=== PATIENT | male | born 1970 | race Caucasian/White ===

== ENCOUNTER 2017-04-30 15:19 | Emergency (ER) | payer OTHER ==
[~2017-04-30] VITALS: Ht 165.1 cm; Wt 65.0 kg
[~2017-04-30 15:19] MED LIST: HYDR-906 PO; IBUP-1542 PO
[2017-04-30] MEDS ORDERED: LORAZEPAM 2 MG INJ IV STA (15:21)
[2017-04-30] MEDS ORDERED: SOD CHLORIDE 0.9% 1,000 ML IV STA (15:21)
[2017-04-30 15:49] VITALS: Ht 165.1 cm; Wt 65.0 kg
[2017-04-30 15:49] LABS: BASOPHIL # 0.1 10^3/ul (0.0-0.1); BASOPHILS % 1.4 % (0.0-2.0); EOSINOPHILS % 0.2 % (0.0-7.0); HEMATOCRIT 38.4 % (42.0-52.0); HEMOGLOBIN 13.6 g/dl (14.0-18.0); LYMPHOCYTES # 1.2 10^3/ul (0.8-2.9); LYMPHOCYTES % 18.1 % (15.0-51.0); MEAN CORPUSCULAR HEMOGLOBIN 33.9 pg (29.0-33.0); MEAN CORPUSCULAR HGB CONC 35.4 g/dl (32.0-37.0); MEAN CORPUSCULAR VOLUME 95.8 fl (82.0-101.0); MEAN PLATELET VOLUME 10.4 fl (7.4-10.4); MONOCYTES % 15.8 % (0.0-11.0); NEUTROPHIL # 4.1 10^3/ul (1.6-7.5); NEUTROPHILS % 63.3 % (39.0-77.0); PLATELET COUNT 167 10^3/UL (140-415); RED BLOOD COUNT 4.01 10^6/ul (4.70-6.10); RED CELL DISTRIBUTION WIDTH 15.2 % (11.5-14.5); WHITE BLOOD COUNT 6.5 10^3/ul (4.8-10.8)
[2017-04-30 16:08] LABS: CALCIUM 10.1 mg/dl (8.4-10.2); CREATININE 0.68 mg/dl (0.61-1.24); POTASSIUM 3.5 mmol/L (3.5-5.1)
--- NOTE | 2017-04-30 17:38 | RADRPT ---
PROCEDURE: CT brain without contrast CLINICAL INDICATION: Seizure TECHNIQUE: CT of the brain without contrast performed on a multidetector CT scanner, with multiplan ar reformats. One or more of the following dose reduction techniques were used: Automated exposure control, adjustment in mA and / or kV according to patient size, use of iterative reconstructive lidya hnique. CTDIvol = 44 mGy; DLP = 720 mGy-cm. COMPARISON: CT brain 06/18/2016 FINDINGS: No acute intracranial hemorrhage is identified. No extra-axial fluid collection is seen. There is no mass effect. No midline shift is identified. The ventricles and sulci are mild to moderately enlarged compatible with volume loss. There are minimal areas of hypodensity in the periventricular - deep white matter which are nonspeci fic but suggestive of chronic small vessel ischemic changes. Sumner-white differentiation is preserve d. Atherosclerotic calcifications of the intracranial internal carotid arteries are noted. Calvarium and skull base appear intact. Mastoid air cells and imaged paranasal sinuses grossly tunde r. IMPRESSION: 1. No evidence of acute intracranial pathology. 2. Mild to moderate volume loss, with minimal chronic small vessel ischemic changes. RPTAT: EE .Erlin Irvin MD, Date Time Electronically viewed and signed by .Erlin Irvin MD, MD on 04/30/2017 17:38 .O/
[2017-04-30 18:05] VITALS: BP 135/94; PULSE 93; RESP 23
--- NOTE | 2017-04-30 18:05 | ERD ---
ER Documentation Chief Complaint Date/Time DATE: 04/30/17 TIME: 18:02 Chief Complaint seizure, possible alcohol withdrawal sent in from half-way witnessed by nurses HPI Patient is a 47-year-old male with no medical problems who presents with a possible seizure. He is currently in custody and was in half-way and there was a seizure that was noticed by somebody in the half-way that was working there. The patient has a history of alcohol use and his last alcohol was yesterday as he was incarcerated yesterday at 10:30 PM. His blood sugar was 140 by paramedics. Please note the history and physical exam is limited secondary to the patient' s recall of events. ROS All systems reviewed and are negative except as per history of present illness. Medications Home Meds Active Scripts Hydrocodone/Acetaminophen ([place] 5-325 Tablet) 1 Each Tablet, 1 TAB PO Q6H Y for PAIN, #20 TAB Prov:TRUNG HARPER NP 08/04/16 Ibuprofen* (Motrin*) 600 Mg Tab, 600 MG PO Q6H Y for PAIN AND OR ELEVATED TEMP, #30 TAB Prov:TRUNG HARPER SYSTEM PLANNING ENGINEER 08/04/16 Reported Medications [none] Unknown Strength No Conflict Check 08/04/16 Allergies Allergies: Coded Allergies: No Known Drug Allergies (Verified Allergy, Unknown, 08/03/16) PMhx/Soc History of Surgery: No Anesthesia Reaction: No Hx Neurological Disorder: No Hx Respiratory Disorders: Yes (asthma) Hx Cardiac Disorders: No Hx Psychiatric Problems: No Hx Miscellaneous Medical Probl: No Hx Alcohol Use: Yes (BEER) Hx Substance Use: No Hx Tobacco Use: No Smoking Status: Never smoker FmHx Family History: No diabetes Physical Exam Vitals Vital Signs Date Time Temp Pulse Resp B/P Pulse Ox O2 Delivery O2 Flow Rate FiO2 04/30/17 15:49 98.8 94 22 149/95 96 Physical Exam Const: Confused Head: Atraumatic Eyes: Normal Conjunctiva ENT: Normal External Ears, Nose and Mouth. Neck: Full range of motion..~ No meningismus. Resp: Clear to auscultation bilaterally Cardio: Regular rate and rhythm, no murmurs Abd: Soft, non tender, non distended. Normal bowel sounds Skin: No petechiae or rashes Back: No midline or flank tenderness Ext: No cyanosis, or edema Neur: Awake but confused regarding events Psych: Normal Mood and Affect Result Diagram: 04/30/17 1534 04/30/17 1534 Results 24 hrs Laboratory Tests Test 04/30/17 15:28 04/30/17 15:34 Bedside Glucose 144mg/dL White Blood Count 6.510^3/ul Red Blood Count 4.0110^6/ul Hemoglobin 13.6g/dl Hematocrit 38.4% Mean Corpuscular Volume 95.8fl Mean Corpuscular Hemoglobin 33.9pg Mean Corpuscular Hemoglobin Concent 35.4g/dl Red Cell Distribution Width 15.2% Platelet Count 73468^3/UL Mean Platelet Volume 10.4fl Neutrophils % 63.3% Lymphocytes % 18.1% Monocytes % 15.8% Eosinophils % 0.2% Basophils % 1.4% Nucleated Red Blood Cells % 0.0/100WBC Neutrophils # 4.110^3/ul Lymphocytes # 1.210^3/ul Monocytes # 1.010^3/ul Eosinophils # 0.010^3/ul Basophils # 0.110^3/ul Nucleated Red Blood Cells # 0.010^3/ul Sodium Level 140mmol/L Potassium Level 3.5mmol/L Chloride Level 92mmol/L Carbon Dioxide Level 21mmol/L Anion Gap 31 Blood Urea Nitrogen 6mg/dl Creatinine 0.68mg/dl Glucose Level 152mg/dl Calcium Level 10.1mg/dl Current Medications Medications (Trade) Dose Ordered Sig/Amadeo Route PRN Reason Start Time Stop Time Status Last Admin Dose Admin Sodium Chloride (NS) 1,000 ml @ 1,000 mls/hr Q1H STAT IV 04/30/17 15:21 04/30/17 16:20 DC 04/30/17 15:33 Lorazepam (Ativan) 1 mg ONCE STAT IV 04/30/17 15:21 04/30/17 15:22 DC 04/30/17 15:32 Procedures/MDM CT brain shows no acute abnormality per radiology. Patient is a 47-year-old male who presents with a possible seizure. Laboratory studies are consistent with seizure. CT brain shows no intracranial mass or hemorrhage. The patient is now awake alert and oriented on reevaluation. He was given Ativan to prevent further seizure. This may have been alcohol withdrawal seizure as he does have consistent alcohol use. The patient will be discharged into police custody. He will need to follow-up with a primary doctor as he does not currently have a primary doctor. The patient can return for any worsening symptoms. I would not start him on any new medications. A DMV form was filled out as this is the patient's first seizure and he was told not to drive until cleared by a physician although the patient says that he does not drive. Departure Diagnosis: Primary Impression: Seizure Additional Impression: Anemia Anemia type: unspecified type Qualified Code: D64.9 - Anemia, unspecified type Condition: Fair Patient Instructions: Seizure, New Onset, Unk Cause [Adult] Referrals: [facility] (PCP) Additional Instructions: Call your primary care doctor TOMORROW for an appointment during the next 1-2 days.See the doctor sooner or return here if your condition worsens before your appointment time. NADER FISCHER MD Apr 30, 2017 18:05
== END 2017-04-30 19:07 ==
LOC: E/R 15:19
DX: R56.9 Unspecified convulsions (principal); J45.909 Unspecified asthma, uncomplicated; D64.9 Anemia, unspecified; R40.2142 Coma scale, eyes open, spontaneous, at arrival to emergency department; R40.2252 Coma scale, best verbal response, oriented, at arrival to emergency department; R40.2362 Coma scale, best motor response, obeys commands, at arrival to emergency department
CPT/HCPCS: 36415; 70450; 80048; 82962; 85025; 96374; 99285; J2060; J7030

== ENCOUNTER 2017-08-06 00:58 | Inpatient (IN) | payer OTHER ==
[~2017-08-06] VITALS: Ht 162.6 cm; Wt 67.3 kg
[2017-08-06] MEDS ORDERED: SOD CHLORIDE 0.9% 1,000 ML IV STA (01:08)
[2017-08-06 01:50] VITALS: Ht 162.6 cm; Wt 67.3 kg
--- NOTE | 2017-08-06 01:58 | RADRPT ---
PROCEDURE: CT Brain without contrast. CLINICAL INDICATION: Altered mental status. TECHNIQUE: A CT of the brain was performed utilizing axial imaging from the skull base through the vertex without IV contrast. Multiplanar reformatted images were made. Images were reviewed on a [employer] workstation. The CTDIvol is 89.40 6 mGy and the DLP is 1080.34 mGycm. One or more of the following dose reduction techniques were utilized: 1.) Automated exposure control 2.) Adjustment of the mA +/- kV according to patient's size 3.) Use of iterative reconstruction technique. COMPARISON: 04/30/2017. FINDINGS: Chronic changes of atrophy and small vessel disease white matter again seen, greater than expected f or patient age. There is no intracranial hemorrhage, mass effect, or midline shift. No extra-axial fluid collection is seen. The ventricles and sulci are otherwise normal in size and configuration. The density of th e brain is otherwise normal, and the lindquist white matter differentiation appears well-preserved. The visualized paranasal sinuses and osseous structures are grossly unremarkable. IMPRESSION: 1. Chronic changes of atrophy and small vessel disease white matter again seen, greater than expecte d for patient age. 2. Otherwise, no acute process in the head. RPTAT: [facility]U Physician Adalgisa Date Time Electronically viewed and signed by Physician Adalgisa on 08/06/2017 01:58 RS/
[2017-08-06] MEDS ORDERED: ONDANSETRON 4 MG INJ ONE (02:07)
--- NOTE | 2017-08-06 02:25 | RADRPT ---
PROCEDURE: XR Chest. CLINICAL INDICATION: Altered mental status. Seizure. TECHNIQUE: Single frontal view of the chest. COMPARISON: None. FINDINGS: Cardiomegaly. Hypoinflated lungs accentuate pulmonary vascular markings. The lungs are clear. No sig ns of pleural fluid or pneumothorax are seen. The osseous structures and soft tissues are unremarkab le. IMPRESSION: No evidence for active cardiopulmonary disease. RPTAT: [facility] Physician Adalgisa Date Time Electronically viewed and signed by Vandana Dickinson Physician on 08/06/2017 02:24 RS/
[2017-08-06] MEDS ORDERED: ONDANSETRON 4 MG INJ IV STA (02:55)
[2017-08-06] MEDS ORDERED: LEVETIRACETAM 1000 MG (PMX) 100 ML IVPB ONE (03:00)
[2017-08-06] MEDS ORDERED: CHLORDIAZEPOXIDE 25 MG CAP PO ONE (04:00)
--- NOTE | 2017-08-06 06:28 | ERD ---
ER Documentation Chief Complaint Chief Complaint POSSIBLE SEIZURE, MOUTH TRAUMA HPI This 47-year-old male brought in by paramedics and police from halfway for having a possible seizure in halfway. He has a history of seizure disorder. He is currently altered. He is not on any medications. On arrival he is able to answer only basic questions and states that he has no pain. Is still confused. History was taken approximately an hour later when the patient was alert and oriented. Neurological exam was completely normal. States that he was drinking heavily before he went to halfway a couple days ago and has not had a drink since. ROS Unobtainable. Medications Home Meds Active Scripts Hydrocodone/Acetaminophen ([place] 5-325 Tablet) 1 Each Tablet, 1 TAB PO Q6H Y for PAIN, #20 TAB Prov:TRUNG HARPER NP 08/04/16 Ibuprofen* (Motrin*) 600 Mg Tab, 600 MG PO Q6H Y for PAIN AND OR ELEVATED TEMP, #30 TAB Prov:TRUNG HARPER NP 08/04/16 Reported Medications [none] Unknown Strength No Conflict Check 08/04/16 Allergies Allergies: Coded Allergies: No Known Drug Allergies (Verified Allergy, Unknown, 08/03/16) PMhx/Soc History of Surgery: No Anesthesia Reaction: No Hx Neurological Disorder: Yes (SEIZURES) Hx Respiratory Disorders: Yes (asthma) Hx Cardiac Disorders: No Hx Psychiatric Problems: No Hx Miscellaneous Medical Probl: Yes (SEIZURES) Hx Alcohol Use: Yes (BEER) Hx Substance Use: No Hx Tobacco Use: No Smoking Status: Unknown if ever smoked Physical Exam Vitals Vital Signs Date Time Temp Pulse Resp B/P Pulse Ox O2 Delivery O2 Flow Rate FiO2 08/06/17 03:55 97.9 79 16 139/87 99 Nasal Cannula 2.0 08/06/17 01:50 98.3 94 14 148/92 96 08/06/17 01:49 Nasal Cannula 2 Physical Exam Const: [] Mild distress Head: Atraumatic Eyes: Normal Conjunctiva ENT: Normal External Ears, Nose and Mouth., Small area of bleeding on tongue. Neck: Full range of motion..~No midline tenderness. Resp: Clear to auscultation bilaterally Cardio: Regular rate and rhythm, no murmurs Abd: Soft, non tender, non distended. Normal bowel sounds Skin: No petechiae or rashes Back: No midline or flank tenderness Ext: No cyanosis, or edema distal pulses intact all 4 extremities, no signs of trauma. Neur: Awake and alert, confused, moves all 4 extremities Result Diagram: 08/06/1721408/06/17214 Results 24 hrs Laboratory Tests Test 08/06/17 01:02 08/06/17 02:15 08/06/17 03:00 Bedside Glucose 110mg/dL White Blood Count 4.910^3/ul Red Blood Count 3.8410^6/ul Hemoglobin 12.8g/dl Hematocrit 36.0% Mean Corpuscular Volume 93.8fl Mean Corpuscular Hemoglobin 33.3pg Mean Corpuscular Hemoglobin Concent 35.6g/dl Red Cell Distribution Width 17.2% Platelet Count 82265^3/UL Mean Platelet Volume 10.5fl Neutrophils % 69.0% Lymphocytes % 10.4% Monocytes % 18.8% Eosinophils % 0.2% Basophils % 1.4% Nucleated Red Blood Cells % 0.0/100WBC Neutrophils # 3.410^3/ul Lymphocytes # 0.510^3/ul Monocytes # 0.910^3/ul Eosinophils # 0.010^3/ul Basophils # 0.110^3/ul Nucleated Red Blood Cells # 0.010^3/ul Sodium Level 141mmol/L Potassium Level 3.9mmol/L Chloride Level 97mmol/L Carbon Dioxide Level 24mmol/L Anion Gap 24 Blood Urea Nitrogen 9mg/dl Creatinine 0.71mg/dl Glucose Level 114mg/dl Lactic Acid Level 4.0mmol/L Calcium Level 9.5mg/dl Total Bilirubin 0.7mg/dl Direct Bilirubin 0.00mg/dl Indirect Bilirubin 0.7mg/dl Aspartate Amino Transf (AST/SGOT) 127IU/L Alanine Aminotransferase (ALT/SGPT) 60IU/L Alkaline Phosphatase 96IU/L Total Protein 8.1g/dl Albumin 5.0g/dl Globulin 3.10g/dl Albumin/Globulin Ratio 1.61 Salicylates Level < 1.0mg/dl Acetaminophen Level < 10.0ug/ml Urine Color YELLOW Urine Clarity CLEAR Urine pH 5.0 Urine Specific [place] 1.014 Urine Ketones 1+mg/dL Urine Nitrite NEGATIVEmg/dL Urine Bilirubin NEGATIVEmg/dL Urine Urobilinogen NEGATIVEmg/dL Urine Leukocyte Esterase NEGATIVELeu/ul Urine Microscopic RBC 1/HPF Urine Microscopic WBC 1/HPF Urine Hemoglobin 2+mg/dL Urine Glucose NEGATIVEmg/dL Urine Total Protein 2+mg/dl Urine Opiates Screen Negative Urine Barbiturates Negative Urine Amphetamines Screen Negative Urine Benzodiazepines Screen Negative Urine Cocaine Screen Negative Urine Cannabinoids Negative Current Medications Medications (Trade) Dose Ordered Sig/Amadeo Route PRN Reason Start Time Stop Time Status Last Admin Dose Admin Sodium Chloride (NS) 1,000 ml @ 1,000 mls/hr Q1H STAT IV 08/06/17 01:08 08/06/17 02:07 DC 08/06/17 01:16 Ondansetron HCl 4 mg 4 mg STK-MED ONCE .ROUTE 08/06/17 02:07 08/06/17 02:08 DC Levetiracetam (Keppra 1,000mg/ 100ml (Pmx)) 100 ml @ 400 mls/hr ONCE ONCE IVPB 08/06/17 03:00 08/06/17 03:14 DC 08/06/17 03:25 Ondansetron HCl (Zofran Inj) 4 mg ONCE STAT IV 08/06/17 02:55 08/06/17 02:57 DC 08/06/17 03:25 Chlordiazepoxide (Librium) 100 mg ONCE ONCE PO 08/06/17 04:00 08/06/17 04:01 DC 08/06/17 04:03 Procedures/MDM Likely seizure in halfway secondary to alcohol withdrawal with underlying seizure disorder. Patient was placed on a monitor and oxygen. He was given a gram of Keppra for loading. He was given Librium tab different alcohol withdrawals. There was normal saline. Trauma was unknown and CAT scan of the head was performed which was negative for acute process. Patient was no longer altered after an hour and was cleared by Nexus criteria of C-spine. Lactic acid of 4 is likely secondary to generalized tonic-clonic seizure. Is likely the patient is discharged in a seizure was related to alcohol withdrawal that he would continue to have seizures in halfway he cannot drink alcohol nor take narcotic medications. Being admitted by Dr. benitez. CT head interpretation: I see no acute process, no hemorrhage, no mass-effect or midline shift, no skull fracture. Chest x-ray interpretation: I see no acute process. I see no infiltrate, no pneumothorax, no pulmonary edema, no pleural effusions, no fractures. EKG interpretation: Normal sinus rhythm, rate of 81, normal axis, and normal EKG monitoring engineer interpretation: Normal sinus rhythm without arrhythmia. Departure Diagnosis: Primary Impression: Altered level of consciousness Additional Impressions: Seizure Lactic acidosis Alcohol withdrawal Anemia Condition: Serious MATEUSZJORGE LUIS Aug 06, 2017 06:28
--- NOTE | 2017-08-06 06:28 | ERD ---
ER Documentation Chief Complaint Chief Complaint POSSIBLE SEIZURE, MOUTH TRAUMA HPI This 47-year-old male brought in by paramedics and police from shelter for having a possible seizure in shelter. He has a history of seizure disorder. He is currently altered. He is not on any medications. On arrival he is able to answer only basic questions and states that he has no pain. Is still confused. History was taken approximately an hour later when the patient was alert and oriented. Neurological exam was completely normal. States that he was drinking heavily before he went to shelter a couple days ago and has not had a drink since. ROS Unobtainable. Medications Home Meds Active Scripts Hydrocodone/Acetaminophen ([place] 5-325 Tablet) 1 Each Tablet, 1 TAB PO Q6H Y for PAIN, #20 TAB Prov:TRUNG HAREPR NP 08/04/16 Ibuprofen* (Motrin*) 600 Mg Tab, 600 MG PO Q6H Y for PAIN AND OR ELEVATED TEMP, #30 TAB Prov:TRUNG HARPER NP 08/04/16 Reported Medications [none] Unknown Strength No Conflict Check 08/04/16 Allergies Allergies: Coded Allergies: No Known Drug Allergies (Verified Allergy, Unknown, 08/03/16) PMhx/Soc History of Surgery: No Anesthesia Reaction: No Hx Neurological Disorder: Yes (SEIZURES) Hx Respiratory Disorders: Yes (asthma) Hx Cardiac Disorders: No Hx Psychiatric Problems: No Hx Miscellaneous Medical Probl: Yes (SEIZURES) Hx Alcohol Use: Yes (BEER) Hx Substance Use: No Hx Tobacco Use: No Smoking Status: Unknown if ever smoked Physical Exam Vitals Vital Signs Date Time Temp Pulse Resp B/P Pulse Ox O2 Delivery O2 Flow Rate FiO2 08/06/17 03:55 97.9 79 16 139/87 99 Nasal Cannula 2.0 08/06/17 01:50 98.3 94 14 148/92 96 08/06/17 01:49 Nasal Cannula 2 Physical Exam Const: [] Mild distress Head: Atraumatic Eyes: Normal Conjunctiva ENT: Normal External Ears, Nose and Mouth., Small area of bleeding on tongue. Neck: Full range of motion..~No midline tenderness. Resp: Clear to auscultation bilaterally Cardio: Regular rate and rhythm, no murmurs Abd: Soft, non tender, non distended. Normal bowel sounds Skin: No petechiae or rashes Back: No midline or flank tenderness Ext: No cyanosis, or edema distal pulses intact all 4 extremities, no signs of trauma. Neur: Awake and alert, confused, moves all 4 extremities Result Diagram: 08/06/1721408/06/17214 Results 24 hrs Laboratory Tests Test 08/06/17 01:02 08/06/17 02:15 08/06/17 03:00 Bedside Glucose 110mg/dL White Blood Count 4.910^3/ul Red Blood Count 3.8410^6/ul Hemoglobin 12.8g/dl Hematocrit 36.0% Mean Corpuscular Volume 93.8fl Mean Corpuscular Hemoglobin 33.3pg Mean Corpuscular Hemoglobin Concent 35.6g/dl Red Cell Distribution Width 17.2% Platelet Count 76556^3/UL Mean Platelet Volume 10.5fl Neutrophils % 69.0% Lymphocytes % 10.4% Monocytes % 18.8% Eosinophils % 0.2% Basophils % 1.4% Nucleated Red Blood Cells % 0.0/100WBC Neutrophils # 3.410^3/ul Lymphocytes # 0.510^3/ul Monocytes # 0.910^3/ul Eosinophils # 0.010^3/ul Basophils # 0.110^3/ul Nucleated Red Blood Cells # 0.010^3/ul Sodium Level 141mmol/L Potassium Level 3.9mmol/L Chloride Level 97mmol/L Carbon Dioxide Level 24mmol/L Anion Gap 24 Blood Urea Nitrogen 9mg/dl Creatinine 0.71mg/dl Glucose Level 114mg/dl Lactic Acid Level 4.0mmol/L Calcium Level 9.5mg/dl Total Bilirubin 0.7mg/dl Direct Bilirubin 0.00mg/dl Indirect Bilirubin 0.7mg/dl Aspartate Amino Transf (AST/SGOT) 127IU/L Alanine Aminotransferase (ALT/SGPT) 60IU/L Alkaline Phosphatase 96IU/L Total Protein 8.1g/dl Albumin 5.0g/dl Globulin 3.10g/dl Albumin/Globulin Ratio 1.61 Salicylates Level < 1.0mg/dl Acetaminophen Level < 10.0ug/ml Urine Color YELLOW Urine Clarity CLEAR Urine pH 5.0 Urine Specific [place] 1.014 Urine Ketones 1+mg/dL Urine Nitrite NEGATIVEmg/dL Urine Bilirubin NEGATIVEmg/dL Urine Urobilinogen NEGATIVEmg/dL Urine Leukocyte Esterase NEGATIVELeu/ul Urine Microscopic RBC 1/HPF Urine Microscopic WBC 1/HPF Urine Hemoglobin 2+mg/dL Urine Glucose NEGATIVEmg/dL Urine Total Protein 2+mg/dl Urine Opiates Screen Negative Urine Barbiturates Negative Urine Amphetamines Screen Negative Urine Benzodiazepines Screen Negative Urine Cocaine Screen Negative Urine Cannabinoids Negative Current Medications Medications (Trade) Dose Ordered Sig/Amadeo Route PRN Reason Start Time Stop Time Status Last Admin Dose Admin Sodium Chloride (NS) 1,000 ml @ 1,000 mls/hr Q1H STAT IV 08/06/17 01:08 08/06/17 02:07 DC 08/06/17 01:16 Ondansetron HCl 4 mg 4 mg STK-MED ONCE .ROUTE 08/06/17 02:07 08/06/17 02:08 DC Levetiracetam (Keppra 1,000mg/ 100ml (Pmx)) 100 ml @ 400 mls/hr ONCE ONCE IVPB 08/06/17 03:00 08/06/17 03:14 DC 08/06/17 03:25 Ondansetron HCl (Zofran Inj) 4 mg ONCE STAT IV 08/06/17 02:55 08/06/17 02:57 DC 08/06/17 03:25 Chlordiazepoxide (Librium) 100 mg ONCE ONCE PO 08/06/17 04:00 08/06/17 04:01 DC 08/06/17 04:03 Procedures/MDM Likely seizure in shelter secondary to alcohol withdrawal with underlying seizure disorder. Patient was placed on a monitor and oxygen. He was given a gram of Keppra for loading. He was given Librium tab different alcohol withdrawals. There was normal saline. Trauma was unknown and CAT scan of the head was performed which was negative for acute process. Patient was no longer altered after an hour and was cleared by Nexus criteria of C-spine. Lactic acid of 4 is likely secondary to generalized tonic-clonic seizure. Is likely the patient is discharged in a seizure was related to alcohol withdrawal that he would continue to have seizures in shelter he cannot drink alcohol nor take narcotic medications. Being admitted by Dr. benitez. CT head interpretation: I see no acute process, no hemorrhage, no mass-effect or midline shift, no skull fracture. Chest x-ray interpretation: I see no acute process. I see no infiltrate, no pneumothorax, no pulmonary edema, no pleural effusions, no fractures. EKG interpretation: Normal sinus rhythm, rate of 81, normal axis, and normal EKG laboratory monitor interpretation: Normal sinus rhythm without arrhythmia. Departure Diagnosis: Primary Impression: Altered level of consciousness Additional Impressions: Seizure Lactic acidosis Alcohol withdrawal Anemia Condition: Serious MATEUSZJORGE LUIS Aug 06, 2017 06:28
--- NOTE | 2017-08-06 06:28 | ERD ---
ER Documentation Chief Complaint Chief Complaint POSSIBLE SEIZURE, MOUTH TRAUMA HPI This 47-year-old male brought in by paramedics and police from [facility] for having a possible seizure in [facility]. He has a history of seizure disorder. He is currently altered. He is not on any medications. On arrival he is able to answer only basic questions and states that he has no pain. Is still confused. History was taken approximately an hour later when the patient was alert and oriented. Neurological exam was completely normal. States that he was drinking heavily before he went to [facility] a couple days ago and has not had a drink since. ROS Unobtainable. Medications Home Meds Active Scripts Hydrocodone/Acetaminophen ([place] 5-325 Tablet) 1 Each Tablet, 1 TAB PO Q6H Y for PAIN, #20 TAB Prov:TRUNG HARPER NP 08/04/16 Ibuprofen* (Motrin*) 600 Mg Tab, 600 MG PO Q6H Y for PAIN AND OR ELEVATED TEMP, #30 TAB Prov:TRUNG HARPER NP 08/04/16 Reported Medications [none] Unknown Strength No Conflict Check 08/04/16 Allergies Allergies: Coded Allergies: No Known Drug Allergies (Verified Allergy, Unknown, 08/03/16) PMhx/Soc History of Surgery: No Anesthesia Reaction: No Hx Neurological Disorder: Yes (SEIZURES) Hx Respiratory Disorders: Yes (asthma) Hx Cardiac Disorders: No Hx Psychiatric Problems: No Hx Miscellaneous Medical Probl: Yes (SEIZURES) Hx Alcohol Use: Yes (BEER) Hx Substance Use: No Hx Tobacco Use: No Smoking Status: Unknown if ever smoked Physical Exam Vitals Vital Signs Date Time Temp Pulse Resp B/P Pulse Ox O2 Delivery O2 Flow Rate FiO2 08/06/17 03:55 97.9 79 16 139/87 99 Nasal Cannula 2.0 08/06/17 01:50 98.3 94 14 148/92 96 08/06/17 01:49 Nasal Cannula 2 Physical Exam Const: [] Mild distress Head: Atraumatic Eyes: Normal Conjunctiva ENT: Normal External Ears, Nose and Mouth., Small area of bleeding on tongue. Neck: Full range of motion..~No midline tenderness. Resp: Clear to auscultation bilaterally Cardio: Regular rate and rhythm, no murmurs Abd: Soft, non tender, non distended. Normal bowel sounds Skin: No petechiae or rashes Back: No midline or flank tenderness Ext: No cyanosis, or edema distal pulses intact all 4 extremities, no signs of trauma. Neur: Awake and alert, confused, moves all 4 extremities Result Diagram: 08/06/1721408/06/17214 Results 24 hrs Laboratory Tests Test 08/06/17 01:02 08/06/17 02:15 08/06/17 03:00 Bedside Glucose 110mg/dL White Blood Count 4.910^3/ul Red Blood Count 3.8410^6/ul Hemoglobin 12.8g/dl Hematocrit 36.0% Mean Corpuscular Volume 93.8fl Mean Corpuscular Hemoglobin 33.3pg Mean Corpuscular Hemoglobin Concent 35.6g/dl Red Cell Distribution Width 17.2% Platelet Count 29111^3/UL Mean Platelet Volume 10.5fl Neutrophils % 69.0% Lymphocytes % 10.4% Monocytes % 18.8% Eosinophils % 0.2% Basophils % 1.4% Nucleated Red Blood Cells % 0.0/100WBC Neutrophils # 3.410^3/ul Lymphocytes # 0.510^3/ul Monocytes # 0.910^3/ul Eosinophils # 0.010^3/ul Basophils # 0.110^3/ul Nucleated Red Blood Cells # 0.010^3/ul Sodium Level 141mmol/L Potassium Level 3.9mmol/L Chloride Level 97mmol/L Carbon Dioxide Level 24mmol/L Anion Gap 24 Blood Urea Nitrogen 9mg/dl Creatinine 0.71mg/dl Glucose Level 114mg/dl Lactic Acid Level 4.0mmol/L Calcium Level 9.5mg/dl Total Bilirubin 0.7mg/dl Direct Bilirubin 0.00mg/dl Indirect Bilirubin 0.7mg/dl Aspartate Amino Transf (AST/SGOT) 127IU/L Alanine Aminotransferase (ALT/SGPT) 60IU/L Alkaline Phosphatase 96IU/L Total Protein 8.1g/dl Albumin 5.0g/dl Globulin 3.10g/dl Albumin/Globulin Ratio 1.61 Salicylates Level < 1.0mg/dl Acetaminophen Level < 10.0ug/ml Urine Color YELLOW Urine Clarity CLEAR Urine pH 5.0 Urine Specific [place] 1.014 Urine Ketones 1+mg/dL Urine Nitrite NEGATIVEmg/dL Urine Bilirubin NEGATIVEmg/dL Urine Urobilinogen NEGATIVEmg/dL Urine Leukocyte Esterase NEGATIVELeu/ul Urine Microscopic RBC 1/HPF Urine Microscopic WBC 1/HPF Urine Hemoglobin 2+mg/dL Urine Glucose NEGATIVEmg/dL Urine Total Protein 2+mg/dl Urine Opiates Screen Negative Urine Barbiturates Negative Urine Amphetamines Screen Negative Urine Benzodiazepines Screen Negative Urine Cocaine Screen Negative Urine Cannabinoids Negative Current Medications Medications (Trade) Dose Ordered Sig/Amadeo Route PRN Reason Start Time Stop Time Status Last Admin Dose Admin Sodium Chloride (NS) 1,000 ml @ 1,000 mls/hr Q1H STAT IV 08/06/17 01:08 08/06/17 02:07 DC 08/06/17 01:16 Ondansetron HCl 4 mg 4 mg STK-MED ONCE .ROUTE 08/06/17 02:07 08/06/17 02:08 DC Levetiracetam (Keppra 1,000mg/ 100ml (Pmx)) 100 ml @ 400 mls/hr ONCE ONCE IVPB 08/06/17 03:00 08/06/17 03:14 DC 08/06/17 03:25 Ondansetron HCl (Zofran Inj) 4 mg ONCE STAT IV 08/06/17 02:55 08/06/17 02:57 DC 08/06/17 03:25 Chlordiazepoxide (Librium) 100 mg ONCE ONCE PO 08/06/17 04:00 08/06/17 04:01 DC 08/06/17 04:03 Procedures/MDM Likely seizure in [facility] secondary to alcohol withdrawal with underlying seizure disorder. Patient was placed on a monitor and oxygen. He was given a gram of Keppra for loading. He was given Librium tab different alcohol withdrawals. There was normal saline. Trauma was unknown and CAT scan of the head was performed which was negative for acute process. Patient was no longer altered after an hour and was cleared by Nexus criteria of C-spine. Lactic acid of 4 is likely secondary to generalized tonic-clonic seizure. Is likely the patient is discharged in a seizure was related to alcohol withdrawal that he would continue to have seizures in [facility] he cannot drink alcohol nor take narcotic medications. Being admitted by Dr. benitez. CT head interpretation: I see no acute process, no hemorrhage, no mass-effect or midline shift, no skull fracture. Chest x-ray interpretation: I see no acute process. I see no infiltrate, no pneumothorax, no pulmonary edema, no pleural effusions, no fractures. EKG interpretation: Normal sinus rhythm, rate of 81, normal axis, and normal EKG bus monitor interpretation: Normal sinus rhythm without arrhythmia. Departure Diagnosis: Primary Impression: Altered level of consciousness Additional Impressions: Seizure Lactic acidosis Alcohol withdrawal Anemia Condition: Serious MATEUSZJORGE LUIS Aug 06, 2017 06:28
[2017-08-06] MEDS ORDERED: SOD CHLORIDE 0.9% 1,000 ML IV ONE (06:30)
[2017-08-06] MEDS ORDERED: ACETAMINOPHEN 325 MG TAB PO PRN (07:00)
[2017-08-06] MEDS ORDERED: ONDANSETRON 4 MG INJ IV PRN ×2 (07:00→09:30)
--- NOTE | 2017-08-06 08:53 | HP ---
Date/Time of Note Date/Time of Note DATE: 08/06/17 TIME: 08:40 Assessment/Plan VTE Prophylaxis VTE Prophylaxis Intervention: SCD's Assessment/Plan Assessment/Plan 1. Seizure, most likely alcohol induced -Patient's last drink was either 2 or 4 days ago -He will be placed on IV Keppra with as needed Ativan -Banana bag -Librium -EEG -Consider neurology consult 2. Lactic acidosis -IV fluid -Repeat lab -Additional workup, including infectious as needed HPI/ROS Admit Date/Time Admit Date/Time Hx of Present Illness This is a 47-year-old male with a history of seizure in alcohol abuse who was brought by [employer] from custodial for possible seizure. He said his body was shaking and he became confused. When patient presented to the ER, reportedly he was initially confused but became more and more oriented. He said he drinks mostly beer whenever he gets the opportunity to do so. His last drink, according to the ER physician was 2 days ago but patient told me it was 4 days ago. He said his last seizure was 4 years ago but he was seen in our ER about 3 months ago for a "new onset seizure". Patient has not been taking any medications. He does appear homeless. Head CT in the ER showed Chronic changes of atrophy and small vessel disease white matter. Chest x-ray was no active cardiopulmonary disease. PMH/Family/Social Social History Smoking Status: Unknown if ever smoked Exam/Review of Systems Vital Signs Vitals Vital Signs Date Time Temp Pulse Resp B/P Pulse Ox O2 Delivery O2 Flow Rate FiO2 08/06/17 06:30 79 16 126/89 99 Nasal Cannula 2.0 08/06/17 03:55 97.9 Exam Constitutional: other (Patient looks disheveled. aaox2) Head: atraumatic, normocephalic Eyes: EOMI, PERRL Respiratory: clear to auscultation, normal air movement Cardiovascular: nl pulses, regular rate and rhythm Gastrointestinal: non-tender, soft Extremities: normal pulses Neurological: nl speech, nl strength, other (Not fully oriented) Labs Result Diagram: 08/06/1721408/06/17214 KT DANG MD Aug 06, 2017 08:50
[2017-08-06 09:00] VITALS: TEMP 98.1
[2017-08-06] MEDS ORDERED: NACL 0.9% 3 ML SYG IV SCH (09:30)
[2017-08-06] MEDS ORDERED: MULTIVITAMINS 10 ML, THIAMINE 100 MG in SOD CHLORIDE 0.9% 1,000 ML IVPB SCH (09:30)
[2017-08-06] MEDS ORDERED: ALBUTEROL/IPRATROPIUM (NEB) 3 ML AMP HHN PRN (09:30)
[2017-08-06] MEDS ORDERED: MULTIVITAMINS 10 ML, THIAMINE 100 MG, FOLIC ACID 1 MG in SOD CHLORIDE 0.9% 1,000 ML IVPB SCH (09:30)
[2017-08-06] MEDS ORDERED: LORAZEPAM 2 MG INJ IV PRN (09:30)
[2017-08-06] MEDS ORDERED: morphine 2 MG INJ IV PRN (09:30)
[2017-08-06] MEDS: SOD CHLORIDE 0.9% 1,000 ML IV SCH ×2 (09:55→18:56)
[2017-08-06] MEDS: LEVETIRACETAM 1000 MG (PMX) 100 ML IVPB SCH ×2 (09:56→23:13)
[2017-08-06] MEDS: CHLORDIAZEPOXIDE 25 MG CAP PO SCH ×2 (12:39→20:19)
--- NOTE | 2017-08-06 15:38 | CONS ---
Date/Time of Note Date/Time of Note DATE: 08/06/17 TIME: 15:31 Assessment/Plan Assessment/Plan Chief Complaint/Hosp Course History of seizures with possible breakthrough seizures Problems: Additional Assessment/Plan Patient is a 47-year-old male with history of seizure disorder and alcohol abuse was brought in by [employer] from [facility] living for an episode of possible seizures. Weakness reported that his body was shaking and he became confused. There is no history of fall or head injury. His last alcohol use was about 4 days ago. He had history of seizures and the last seizure was about 4 years ago, as per patient. He is not on any medication for seizures. CT scan of the brain showed chronic white matter disease otherwise unremarkable. Examination showed him to be confused otherwise nonfocal. My impression is that he has breakthrough seizures currently on no medications. Plan 1 continue Keppra 2 seizure precautions 3 MRI of the brain 4 EEG 5 watch for DTs 6 use Librium if necessary 7 will follow Consultation Date/Type/Reason Admit Date/Time Date of Consultation: Aug 06, 2017 Type of Consultation: Neurology Reason for Consultation Seizure disorder and alcoholism Referring Provider: KT DANG MD Hx of Present Illness Patient is a 47-year-old male with history of seizure disorder and alcohol abuse was brought in by [employer] from senior living for an episode of possible seizures. Weakness reported that his body was shaking and he became confused. There is no history of fall or head injury. His last alcohol use was about 4 days ago. He had history of seizures and the last seizure was about 4 years ago, as per patient. He is not on any medication for seizures. CT scan of the brain showed chronic white matter disease otherwise unremarkable. Constitutional: disoriented Eyes: discharge, no complaints ENT: no complaints Respiratory: no complaints Cardiovascular: no complaints Gastrointestinal: no complaints Genitourinary: no complaints Musculoskeletal: no complaints Skin: no complaints Neurologic: confusion, seizure Endocrine: no complaints Lymphatic: no complaints Psychological: no complaints Immunologic: no complaints Social History Alcohol Use: heavy Smoking Status: Unknown if ever smoked Exam/Review of Systems Vital Signs Vitals Vital Signs Date Time Temp Pulse Resp B/P Pulse Ox O2 Delivery O2 Flow Rate FiO2 08/06/17 13:30 78 16 130/85 99 Room Air 08/06/17 09:00 98.1 08/06/17 06:30 2.0 Exam Constitutional: alert, other (Disoriented and confused) Psych: confusion Head: atraumatic, normocephalic Eyes: EOMI, nl conjunctiva, nl lids, nl sclera ENMT: mucosa pink and moist, nl external ears & nose, nl lips & teeth, nl nasal mucosa & septum Neck: non-tender, supple Respiratory: clear to auscultation, normal air movement Cardiovascular: nl pulses, regular rate and rhythm Gastrointestinal: nl liver, spleen, non-tender, soft Extremities: normal pulses Neurological: [employer] II-XII intact, nl speech, nl strength Skin: nl turgor Results Result Diagram: 08/06/1721408/06/17214 Results 24 hrs Laboratory Tests Test 08/06/17 01:02 08/06/17 02:15 08/06/17 03:00 08/06/17 11:49 Bedside Glucose 110 White Blood Count 4.9 # Red Blood Count 3.84 L Hemoglobin 12.8 L Hematocrit 36.0 L Mean Corpuscular Volume 93.8 Mean Corpuscular Hemoglobin 33.3 H Mean Corpuscular Hemoglobin Concent 35.6 Red Cell Distribution Width 17.2 H Platelet Count 138 L Mean Platelet Volume 10.5 H Neutrophils % 69.0 Lymphocytes % 10.4 L Monocytes % 18.8 H Eosinophils % 0.2 Basophils % 1.4 Nucleated Red Blood Cells % 0.0 Neutrophils # 3.4 Lymphocytes # 0.5 L Monocytes # 0.9 Eosinophils # 0.0 Basophils # 0.1 Nucleated Red Blood Cells # 0.0 Sodium Level 141 Potassium Level 3.9 Chloride Level 97 Carbon Dioxide Level 24 Anion Gap 24 H Blood Urea Nitrogen 9 Creatinine 0.71 Glucose Level 114 Lactic Acid Level 4.0 *H 0.8 Calcium Level 9.5 Total Bilirubin 0.7 Direct Bilirubin 0.00 Indirect Bilirubin 0.7 Aspartate Amino Transf (AST/SGOT) 127 H Alanine Aminotransferase (ALT/SGPT) 60 Alkaline Phosphatase 96 Total Protein 8.1 Albumin 5.0 H Globulin 3.10 Albumin/Globulin Ratio 1.61 Salicylates Level < 1.0 L Acetaminophen Level < 10.0 L Urine Color YELLOW Urine Clarity CLEAR Urine pH 5.0 Urine Specific [place] 1.014 Urine Ketones 1+ H Urine Nitrite NEGATIVE Urine Bilirubin NEGATIVE Urine Urobilinogen NEGATIVE Urine Leukocyte Esterase NEGATIVE Urine Microscopic RBC 1 Urine Microscopic WBC 1 Urine Hemoglobin 2+ H Urine Glucose NEGATIVE Urine Total Protein 2+ H Urine Opiates Screen Negative Urine Barbiturates Negative Urine Amphetamines Screen Negative Urine Benzodiazepines Screen Negative Urine Cocaine Screen Negative Urine Cannabinoids Negative Medications Medications Current Medications Sodium Chloride (NS) 1,000 ml @ 100 mls/hr Q10H IV Last administered on 09:55; Admin Dose 100 MLS/HR; Start 08/06/17 at 09:09 Ondansetron HCl (Zofran Inj) 4 mg Q6H PRN IV NAUSEA AND/OR VOMITING; Start at 09:30 Acetaminophen (Tylenol Tab) 650 mg Q6H PRN PO PAIN LEVEL 1-3 OR FEVER; Start 08/06/17 at 09:30 Morphine Sulfate 2 mg 2 mg Q4H PRN IV SEVERE PAIN LEVEL 7-10; Start 08/06/17 at 09:30 Levetiracetam (Keppra 1,000mg/ 100ml (Pmx)) 100 ml @ 400 mls/hr Q12 IVPB Last administered on 08/06/17 09:56; Admin Dose 400 MLS/HR; Start 08/06/17 at 09: 30 Lorazepam (Ativan) 2 mg Q10M PRN IV seizure; Start 08/06/17 at 09:30 Chlordiazepoxide 25 mg 25 mg TID PO Last administered on 08/06/17 12:39; Admin Dose 25 MG; Start 08/06/17 at 13:00; Stop 08/08/17 at 15:00 Multivitamins/ Thiamine HCl/ Sodium Chloride (Mvi Adult/ Vitamin B1/NS) 1,011 ml @ 125 mls/hr DAILY@09 IVPB ; Start 08/06/17 at 09:30 NEHEMIAS RM MD Aug 06, 2017 15:38
--- NOTE | 2017-08-06 16:44 | RADRPT ---
PROCEDURE: MRI Brain without contrast. CLINICAL INDICATION: Seizures TECHNIQUE: An MRI of the brain was performed on a high resolution hi-definition 3.0 Mai MRI scan ner utilizing the following sequences: Sagittal and axial T1 weighted, axial T2 weighted, coronal ob lique 3-D SPGR and coronal T2 FLAIR, axial diffusion weighted with ADC mapping, coronal GRE, and axi al FLAIR. COMPARISON: CT brain 08/06/2017, 04/30/2017, 06/18/2016 FINDINGS: No extra-axial fluid collections are present. The ventricles and sulci are remarkable for prominence of the ventricles and sulci greater than expected for patient's age and compatible with mild to mod erate volume loss. No evidence of intracranial hemorrhage, mass effect or midline shift is present. On the FLAIR and T2-weighted sequences, multiple punctate foci of hyperintensity are present in the bilateral subcortical white matter, bilateral centrum semiovale and bilateral periventricular white matter compatible with mild microvascular ischemic disease. Dedicated evaluation of the bilateral te mporal lobes demonstrates symmetric bilateral fornices and hippocampal formations. No evidence for h yperintensity is noted to suggest mesial temporal sclerosis. No diffusion weighted abnormalities are seen to suggest the presence of acute ischemia or recent infarct. No hypointense signal abnormalit ies are seen on the GRE images to suggest the presence of blood degradation products. Normal flow voids are visible in the proximal intracranial arteries and dural sinuses, indicating patency. The visualized scalp and calvarium are normal. The bilateral orbits are normal. The bilateral parana ria sinuses demonstrate chronic bilateral ethmoid, frontal, maxillary, and sphenoid sinus disease. N o acute air fluid levels are present. The visualized bilateral mastoid air cells demonstrate incompl ete pneumatization with mild amount of fluid present bilaterally. The bilateral middle ear cavities are patent. IMPRESSION: 1. No evidence for acute infarcts, hemorrhage, or acute intracranial pathology. 2. Mild to moderate volume loss and mild chronic microvascular ischemic disease. 3. No evidence for seizure foci or temporal lobe abnormalities. 4. Chronic pansinusitis RPTAT: HDC .Brenda Correa MD, MD Date Time Electronically viewed and signed by .Brenda Correa MD, MD on 08/06/2017 16:44 .C/
[2017-08-06 19:41] VITALS: BP 137/84; RESP 18
[2017-08-06] MEDS ORDERED: INFLUENZA VIRUS VACCINE 0.5 ML SYG IM* ONE (20:00)
[2017-08-06 22:45] VITALS: BP 152/82; RESP 20
[2017-08-06] MEDS ORDERED: LORAZEPAM 2 MG INJ IM ONE (23:00)
[2017-08-06 23:07] VITALS: BP 152/82; RESP 20
[2017-08-06] MEDS: LORAZEPAM 2 MG INJ IV PRN (23:43)
[2017-08-07] VITALS (7 sets, daily range): BP systolic 112–136; BP diastolic 57–90; PULSE 86; RESP 18–20
[2017-08-07] MEDS ORDERED: HALOPERIDOL 5 MG INJ IM ONE (00:30)
[2017-08-07] MEDS ORDERED: DIPHENHYDRAMINE 50 MG INJ IV ONE (00:30)
[2017-08-07] MEDS ORDERED: DIPHENHYDRAMINE 50 MG INJ ONE (00:33)
[2017-08-07] MEDS: LORAZEPAM 2 MG INJ IV PRN ×5 (00:47→22:52)
--- NOTE | 2017-08-07 01:07 | RADRPT ---
PROCEDURE: X-ray left wrist. CLINICAL INDICATION: Injury to the wrist. TECHNIQUE: Single AP view of the left wrist COMPARISON: None FINDINGS: Ulnar plus variance. There is a nondisplaced fracture of the distal ulnar metaphysis, with overlying soft tissue swelling. 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 Demineralization limits e valuation of fine osseous detail. Remaining osseous structures without acute fracture. IMPRESSION: 1. There is nondisplaced fracture of the distal ulnar metaphysis. 2. Overlying soft tissue swelling at the distal ulna. 3. Ulnar plus variance. RPTAT: [facility] Physician Adalgisa Date Time Electronically viewed and signed by Physician Adalgisa on 08/07/2017 01:07 RS/
[2017-08-07] MEDS ORDERED: CHLORDIAZEPOXIDE 25 MG CAP PO ONE (02:00)
[2017-08-07] MEDS: MULTIVITAMINS 10 ML, THIAMINE 100 MG in SOD CHLORIDE 0.9% 1,000 ML IVPB SCH (02:33)
[2017-08-07] MEDS: SOD CHLORIDE 0.9% 1,000 ML IV SCH (05:09)
[2017-08-07] MEDS: LEVETIRACETAM 1000 MG (PMX) 100 ML IVPB SCH ×2 (08:56→21:46)
[2017-08-07] MEDS: CHLORDIAZEPOXIDE 25 MG CAP PO SCH ×3 (09:00→13:11)
--- NOTE | 2017-08-07 11:23 | PN ---
Date/Time of Note Date/Time of Note DATE: 08/07/17 TIME: 11:22 Assessment/Plan VTE Prophylaxis VTE Prophylaxis Intervention: SCD's Lines/Catheters IV C[facility]ter Type (from [facility] Peripheral IV Assessment/Plan Chief Complaint/Hosp Course 1. Seizure disorder. Continue seizure precautions. Continue Keppra. Pending EEG. Brain CT and brain MRI negative for any acute findings. 2. Alcohol abuse. Watch for any alcohol withdrawal delirium.. Continue multivitamins. 3. Nondisplaced fracture of the left distal ulnar metaphysis. The patient's left wrist is immobilized. Will call orthopedic surgery for evaluation. 4. Normocytic, normochromic anemia. Etiology unclear. Will monitor H&H closely. Will obtain an iron panel. 5. Fluids, electrolytes, and nutrition. Regular diet. 6. DVT prophylaxis. Bilateral SCDs. 7. Plan. Continue anticonvulsants. Await further neurology recommendations. Obtain orthopedic surgery consult. Case discussed with Dr. Gasca. Problems: Subjective 24 Hr Interval Summary Free Text/Dictation Patient remains confused. The patient is in custody. Exam/Review of Systems Vital Signs Vitals Vital Signs Date Time Temp Pulse Resp B/P Pulse Ox O2 Delivery O2 Flow Rate FiO2 08/07/17 07:55 98.5 67 20 134/90 96 08/06/17 13:30 Room Air 08/06/17 06:30 2.0 Intake and Output 08/06/17 08/06/17 08/07/17 15:00 23:00 07:00 Intake Total 100 ml 1410 ml Output Total 600 ml Balance 100 ml 810 ml Exam General: Adequately build 47 year-old male lying in bed in no apparent distress. HEENT: Normocephalic, atraumatic. Eyes: Anicteric sclerae, conjunctivae clear. ENT: Nasal septum midline, oral mucosa moist. Neck supple, no JVD noticed. Respiratory: Bilaterally clear breath sounds. No use of accessory muscles of respiration. No adventitious breath sounds. Cardiovascular: S1, S2 heard. No murmurs or gallops. Abdomen: Soft, nontender, and nondistended. Bowel sounds positive in all 4 quadrants. Genitourinary: Deferred. Extremities: No cyanosis, no clubbing, no edema. Peripheral pulses palpable. Neurologic: Patient is confused. Skin: Normal skin turgor. No skin rashes. Results Result Diagram: 08/07/17 0505 08/07/17 0505 Results 24 hrs Laboratory Tests Test 08/06/17 11:49 08/06/17 14:50 08/07/17 05:05 Lactic Acid Level 0.8 1.2 White Blood Count 7.5 # Red Blood Count 3.93 L Hemoglobin 12.9 L Hematocrit 37.0 L Mean Corpuscular Volume 94.1 Mean Corpuscular Hemoglobin 32.8 Mean Corpuscular Hemoglobin Concent 34.9 Red Cell Distribution Width 16.8 H Platelet Count 133 L Mean Platelet Volume 11.3 H Neutrophils % 79.1 H Lymphocytes % 6.6 L Monocytes % 13.5 H Eosinophils % 0.1 Basophils % 0.4 Nucleated Red Blood Cells % 0.0 Neutrophils # 5.9 Lymphocytes # 0.5 L Monocytes # 1.0 H Eosinophils # 0.0 Basophils # 0.0 Nucleated Red Blood Cells # 0.0 Sodium Level 138 Potassium Level 3.5 Chloride Level 99 Carbon Dioxide Level 29 Anion Gap 14 # Blood Urea Nitrogen 7 Creatinine 0.66 Glucose Level 81 Calcium Level 9.3 Phosphorus Level 3.1 Magnesium Level 1.4 L Total Bilirubin 0.7 Direct Bilirubin 0.00 Indirect Bilirubin 0.7 Aspartate Amino Transf (AST/SGOT) 96 H Alanine Aminotransferase (ALT/SGPT) 52 Alkaline Phosphatase 78 Total Protein 7.2 Albumin 3.7 # Globulin 3.50 H Albumin/Globulin Ratio 1.05 Medications Medications Current Medications Sodium Chloride (NS) 1,000 ml @ 100 mls/hr Q10H IV Last administered on 18:56; Admin Dose 100 MLS/HR; Start 08/06/17 at 09:09 Ondansetron HCl (Zofran Inj) 4 mg Q6H PRN IV NAUSEA AND/OR VOMITING; Start at 09:30 Acetaminophen (Tylenol Tab) 650 mg Q6H PRN PO PAIN LEVEL 1-3 OR FEVER; Start 08/06/17 at 09:30 Morphine Sulfate 2 mg 2 mg Q4H PRN IV SEVERE PAIN LEVEL 7-10; Start 08/06/17 at 09:30 Levetiracetam (Keppra 1,000mg/ 100ml (Pmx)) 100 ml @ 400 mls/hr Q12 IVPB Last administered on 08/07/17 08:56; Admin Dose 400 MLS/HR; Start 08/06/17 at 09: 30 Lorazepam (Ativan) 2 mg Q10M PRN IV seizure; Start 08/06/17 at 09:30 Lorazepam (Ativan) 1 mg Q1H PRN IV ANXIETY Last administered on 08/07/17 04: 44; Admin Dose 1 MG; Start 08/06/17 at 23:00 Chlordiazepoxide 100 mg 100 mg TID PO Last administered on 08/07/17 10:29; Admin Dose 100 MG; Start 08/07/17 at 09:00 Multivitamins/ Thiamine HCl/ Sodium Chloride (Mvi Adult/ Vitamin B1/NS) 1,011 ml @ 125 mls/hr DAILY@09 IVPB Last administered on 08/07/17 02:33; Admin Dose 125 MLS/HR; Start 08/07/17 at 02:08 BOO WANG NP Aug 07, 2017 11:23
--- NOTE | 2017-08-07 13:10 | CONS ---
Date/Time of Note Date/Time of Note DATE: 08/07/17 TIME: 13:08 Consult Date/Type/Reason Admit Date/Time Aug 06, 2017 at 06:58 Initial Consult Date 08/06/17 Type of Consultation: Neurology Reason for Consultation eval for seizure encephalopathy Ordering Provider: KT DANG MD Subjective no further seizures remains encephalopathic Objective Vital Signs Date Time Temp Pulse Resp B/P Pulse Ox O2 Delivery O2 Flow Rate FiO2 08/07/17 07:55 98.5 67 20 134/90 96 08/06/17 13:30 Room Air 08/06/17 06:30 2.0 Intake and Output 08/06/17 08/06/17 08/07/17 15:00 23:00 07:00 Intake Total 100 ml 1410 ml Output Total 600 ml Balance 100 ml 810 ml Exam Constitutional: alert, other (Disoriented and confused) Psych: confusion Head: atraumatic, normocephalic Eyes: EOMI, nl conjunctiva, nl lids, nl sclera ENMT: mucosa pink and moist, nl external ears & nose, nl lips & teeth, nl nasal mucosa & septum Neck: non-tender, supple Respiratory: clear to auscultation, normal air movement Cardiovascular: nl pulses, regular rate and rhythm Gastrointestinal: nl liver, spleen, non-tender, soft Extremities: normal pulses 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, nl speech, nl strength Skin: nl turgor Results/Medications Result Diagram: 08/07/17 0505 08/07/17 0505 Results 24 hrs Laboratory Tests Test 08/06/17 14:50 08/07/17 05:05 Lactic Acid Level 1.2 White Blood Count 7.5 # Red Blood Count 3.93 L Hemoglobin 12.9 L Hematocrit 37.0 L Mean Corpuscular Volume 94.1 Mean Corpuscular Hemoglobin 32.8 Mean Corpuscular Hemoglobin Concent 34.9 Red Cell Distribution Width 16.8 H Platelet Count 133 L Mean Platelet Volume 11.3 H Neutrophils % 79.1 H Lymphocytes % 6.6 L Monocytes % 13.5 H Eosinophils % 0.1 Basophils % 0.4 Nucleated Red Blood Cells % 0.0 Neutrophils # 5.9 Lymphocytes # 0.5 L Monocytes # 1.0 H Eosinophils # 0.0 Basophils # 0.0 Nucleated Red Blood Cells # 0.0 Sodium Level 138 Potassium Level 3.5 Chloride Level 99 Carbon Dioxide Level 29 Anion Gap 14 # Blood Urea Nitrogen 7 Creatinine 0.66 Glucose Level 81 Calcium Level 9.3 Phosphorus Level 3.1 Magnesium Level 1.4 L Iron Level 58 Total Iron Binding Capacity 286 Percent Iron Saturation 20 L Ferritin 95.1 Total Bilirubin 0.7 Direct Bilirubin 0.00 Indirect Bilirubin 0.7 Aspartate Amino Transf (AST/SGOT) 96 H Alanine Aminotransferase (ALT/SGPT) 52 Alkaline Phosphatase 78 Total Protein 7.2 Albumin 3.7 # Globulin 3.50 H Albumin/Globulin Ratio 1.05 Medications Current Medications Ondansetron HCl (Zofran Inj) 4 mg Q6H PRN IV NAUSEA AND/OR VOMITING; Start at 09:30 Acetaminophen (Tylenol Tab) 650 mg Q6H PRN PO PAIN LEVEL 1-3 OR FEVER; Start 08/06/17 at 09:30 Morphine Sulfate 2 mg 2 mg Q4H PRN IV SEVERE PAIN LEVEL 7-10; Start 08/06/17 at 09:30 Levetiracetam (Keppra 1,000mg/ 100ml (Pmx)) 100 ml @ 400 mls/hr Q12 IVPB Last administered on 08/07/17 08:56; Admin Dose 400 MLS/HR; Start 08/06/17 at 09: 30 Lorazepam (Ativan) 2 mg Q10M PRN IV seizure; Start 08/06/17 at 09:30 Lorazepam (Ativan) 1 mg Q1H PRN IV ANXIETY Last administered on 08/07/17 04: 44; Admin Dose 1 MG; Start 08/06/17 at 23:00 Chlordiazepoxide 100 mg 100 mg TID PO Last administered on 08/07/17 10:29; Admin Dose 100 MG; Start 08/07/17 at 09:00 Multivitamins 10 ml/Thiamine HCl 100 mg/Sodium Chloride 1,011 ml @ 125 mls/hr DAILY@09 IVPB Last administered on 08/07/17 02:33; Admin Dose 125 MLS/HR; Start 08/07/17 at 02:08 Magnesium Sulfate/ Sodium Chloride (Magnesium Sulfate/NS) 106 ml @ 35.333 mls/ hr ONCE ONCE IVPB ; Start 08/07/17 at 13:30; Stop 08/07/17 at 16:29 Assessment/Plan Chief Complaint/Hosp Course Patient is a 47-year-old male with history of seizure disorder and alcohol abuse was brought in by [employer] from shelter for an episode of possible seizures. Weakness reported that his body was shaking and he became confused. There is no history of fall or head injury. His last alcohol use was about 4 days ago. He had history of seizures and the last seizure was about 4 years ago, as per patient. He is not on any medication for seizures. CT scan of the brain showed chronic white matter disease otherwise unremarkable. Examination showed him to be confused otherwise nonfocal. Breakthrough seizures Recommend c/w Keppra MRI Brain unrevealing for acute process EEG done monitor for seizures, DT's Librium as needed Problems: DANII BUTLER MD Aug 07, 2017 13:10
[2017-08-07] MEDS ORDERED: MAGNESIUM SULFATE 3 GM in SOD CHLORIDE 0.9% 100 ML IVPB ONE (13:30)
--- NOTE | 2017-08-07 23:34 | CONS ---
DATE OF ADMISSION: 08/06/2017 DATE OF CONSULTATION: 08/07/2017 HISTORY OF PRESENT ILLNESS: Patient is a 47-year-old male, who was admitted on 06 August 2017, when he was brought into the emergency room because of the possible seizure disorder. He is known to be an alcohol abuser and had a history of seizures in the past. He was somewhat sleepy and was not actively participating in the history-taking and physical examination. However, according to available information, his last seizure was 4 years ago, and he was not complaining of pain involving his left wrist. He admits that he had a injury or fracture involving his left wrist in the past. PHYSICAL EXAMINATION: My examination was limited to the left wrist. There was an obvious enlargement of the left wrist, compared to the right wrist. There was a mild radial deviation of the left wrist, with shortening of the left distal radius, along with the typical ulnar prominence. LABORATORY: X-rays of the left wrist revealed a slight malalignment of the left wrist, with shortening of the radius and prominence of the ulnar styloid. 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 DIAGNOSTIC IMPRESSION: Old fracture of the left wrist, healed in mild malunion. PLAN: No acute treatment is indicated at this time. Dictated By: In Divine Knott MD /frandy/tomasa /Document#: [id number]
[2017-08-08] MEDS: LORAZEPAM 2 MG INJ IV PRN ×4 (01:15→22:26)
[2017-08-08] MEDS ORDERED: HALOPERIDOL 5 MG INJ IM ONE ×2 (02:00→04:00)
[2017-08-08] MEDS ORDERED: LORAZEPAM 2 MG INJ IV ONE ×2 (02:00→04:00)
[2017-08-08] MEDS ORDERED: DIPHENHYDRAMINE 50 MG INJ IV ONE (02:00)
[2017-08-08 02:35] VITALS: BP 109/74; PULSE 101; RESP 20
[2017-08-08 07:45] VITALS: BP 114/79; RESP 20
[2017-08-08] MEDS: LEVETIRACETAM 1000 MG (PMX) 100 ML IVPB SCH ×2 (09:20→21:04)
--- NOTE | 2017-08-08 09:33 | PN ---
Date/Time of Note Date/Time of Note DATE: 08/08/17 TIME: 09:30 Assessment/Plan VTE Prophylaxis VTE Prophylaxis Intervention: SCD's Lines/Catheters IV [facility] Saline Lock Urinary Cath still in place: Yes Reason Cath still needed: other (indicate) Assessment/Plan Chief Complaint/Hosp Course 1. Seizure disorder. Continue seizure precautions. Continue Keppra. Pending EEG. Brain CT and brain MRI negative for any acute findings. 2. Alcohol abuse. Watch for any alcohol withdrawal delirium.. Continue multivitamins. 3. Acute encephalopathy. Etiology unclear. Most probably toxic metabolic in origin. Brain imaging has been negative for any acute findings. 4. Nondisplaced fracture of the left distal ulnar metaphysis. Status post evaluation by orthopedic surgery. As per the orthopedic surgeon, this is an old fracture that is healed in mild malunion and no acute treatment is indicated at this time. 5. Normocytic, normochromic anemia. Etiology unclear. Will monitor H&H closely. Iron panel showing no evidence of any significant iron deficiency other than a slightly low iron saturation. 6. Fluids, electrolytes, and nutrition. Regular diet. 7. DVT prophylaxis. Bilateral SCDs. 8. Plan. Continue anticonvulsants. Await further neurology recommendations. Case discussed with Dr. Gasca. Problems: Subjective 24 Hr Interval Summary Free Text/Dictation The patient was very agitated last night and needed help from Police officers to restrain him. Currently the patient is somnolent. Exam/Review of Systems Vital Signs Vitals Vital Signs Date Time Temp Pulse Resp B/P Pulse Ox O2 Delivery O2 Flow Rate FiO2 08/08/17 07:45 97.9 76 20 114/79 97 08/08/17 02:35 Room Air 08/06/17 06:30 2.0 Intake and Output 08/07/17 08/07/17 08/08/17 15:00 23:00 07:00 Intake Total 2437 ml 1000 ml Output Total 750 ml 2600 ml Balance 1687 ml -1600 ml Exam General: Adequately build 47 year-old male lying in bed in no apparent distress. HEENT: Normocephalic, atraumatic. Eyes: Anicteric sclerae, conjunctivae clear. ENT: Nasal septum midline, oral mucosa moist. Neck supple, no JVD noticed. Respiratory: Bilaterally clear breath sounds. No use of accessory muscles of respiration. No adventitious breath sounds. Cardiovascular: S1, S2 heard. No murmurs or gallops. Abdomen: Soft, nontender, and nondistended. Bowel sounds positive in all 4 quadrants. Genitourinary: Deferred. Extremities: No cyanosis, no clubbing, no edema. Peripheral pulses palpable. Neurologic: Patient is somnolent. Skin: Normal skin turgor. No skin rashes. Results Result Diagram: 08/08/17 0540 08/08/17 0540 Results 24 hrs Laboratory Tests Test 08/08/17 05:40 08/08/17 05:51 White Blood Count 8.0 Red Blood Count 4.09 L Hemoglobin 13.1 L Hematocrit 38.7 L Mean Corpuscular Volume 94.6 Mean Corpuscular Hemoglobin 32.0 Mean Corpuscular Hemoglobin Concent 33.9 Red Cell Distribution Width 17.0 H Platelet Count 142 Mean Platelet Volume 11.6 H Neutrophils % 78.5 H Lymphocytes % 6.1 L Monocytes % 13.3 H Eosinophils % 1.1 Basophils % 0.6 Nucleated Red Blood Cells % 0.0 Neutrophils # 6.3 Lymphocytes # 0.5 L Monocytes # 1.1 H Eosinophils # 0.1 Basophils # 0.1 Nucleated Red Blood Cells # 0.0 Sodium Level 138 Potassium Level 3.5 Chloride Level 98 Carbon Dioxide Level 29 Anion Gap 15 Blood Urea Nitrogen 8 Creatinine 0.75 Glucose Level 104 Calcium Level 9.3 Phosphorus Level 3.3 Magnesium Level 1.7 Medications Medications Current Medications Ondansetron HCl (Zofran Inj) 4 mg Q6H PRN IV NAUSEA AND/OR VOMITING; Start at 09:30 Acetaminophen (Tylenol Tab) 650 mg Q6H PRN PO PAIN LEVEL 1-3 OR FEVER; Start 08/06/17 at 09:30 Morphine Sulfate 2 mg 2 mg Q4H PRN IV SEVERE PAIN LEVEL 7-10; Start 08/06/17 at 09:30 Levetiracetam (Keppra 1,000mg/ 100ml (Pmx)) 100 ml @ 400 mls/hr Q12 IVPB Last administered on 08/08/17t 09:20; Admin Dose 400 MLS/HR; Start 08/06/17 at 09: 30 Lorazepam (Ativan) 2 mg Q10M PRN IV seizure; Start 08/06/17 at 09:30 Lorazepam 1 mg 1 mg Q1H PRN IV ANXIETY Last administered on 08/08/17 03:11; Admin Dose 1 MG; Start 08/06/17 at 23:00 Multivitamins/ Thiamine HCl/ Sodium Chloride (Mvi Adult/ Vitamin B1/NS) 1,011 ml @ 125 mls/hr DAILY@09 IVPB Last administered on 08/07/17 02:33; Admin Dose 125 MLS/HR; Start 08/07/17 at 02:08 BOO WANG NP Aug 08, 2017 09:33
[2017-08-08] MEDS: MULTIVITAMINS 10 ML, THIAMINE 100 MG in SOD CHLORIDE 0.9% 1,000 ML IVPB SCH (10:15)
--- NOTE | 2017-08-08 11:32 | CONS ---
Date/Time of Note Date/Time of Note DATE: 08/08/17 TIME: 11:31 Consult Date/Type/Reason Admit Date/Time Aug 06, 2017 at 06:58 Initial Consult Date 08/06/17 Type of Consultation: Neurology Reason for Consultation seizure Ordering Provider: KT DANG MD Subjective no further seizures agitated overnight receiving haldol , ativan Objective Vital Signs Date Time Temp Pulse Resp B/P Pulse Ox O2 Delivery O2 Flow Rate FiO2 08/08/17 07:45 97.9 76 20 114/79 97 08/08/17 02:35 Room Air 08/06/17 06:30 2.0 Intake and Output 08/07/17 08/07/17 08/08/17 14:59 22:59 06:59 Intake Total 2437 ml 1000 ml Output Total 750 ml 2600 ml Balance 1687 ml -1600 ml Exam Constitutional: alert, other (Disoriented and confused) Psych: confusion Head: atraumatic, normocephalic Eyes: EOMI, nl conjunctiva, nl lids, nl sclera ENMT: mucosa pink and moist, nl external ears & nose, nl lips & teeth, nl nasal mucosa & septum Neck: non-tender, supple Respiratory: clear to auscultation, normal air movement Cardiovascular: nl pulses, regular rate and rhythm Gastrointestinal: nl liver, spleen, non-tender, soft Extremities: normal pulses 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 II-XII intact, nl speech, nl strength Skin: nl turgor Results/Medications Result Diagram: 08/08/17 0540 08/08/17 0540 Results 24 hrs Laboratory Tests Test 08/08/17 05:40 08/08/17 05:51 White Blood Count 8.0 Red Blood Count 4.09 L Hemoglobin 13.1 L Hematocrit 38.7 L Mean Corpuscular Volume 94.6 Mean Corpuscular Hemoglobin 32.0 Mean Corpuscular Hemoglobin Concent 33.9 Red Cell Distribution Width 17.0 H Platelet Count 142 Mean Platelet Volume 11.6 H Neutrophils % 78.5 H Lymphocytes % 6.1 L Monocytes % 13.3 H Eosinophils % 1.1 Basophils % 0.6 Nucleated Red Blood Cells % 0.0 Neutrophils # 6.3 Lymphocytes # 0.5 L Monocytes # 1.1 H Eosinophils # 0.1 Basophils # 0.1 Nucleated Red Blood Cells # 0.0 Sodium Level 138 Potassium Level 3.5 Chloride Level 98 Carbon Dioxide Level 29 Anion Gap 15 Blood Urea Nitrogen 8 Creatinine 0.75 Glucose Level 104 Calcium Level 9.3 Phosphorus Level 3.3 Magnesium Level 1.7 Medications Current Medications Ondansetron HCl (Zofran Inj) 4 mg Q6H PRN IV NAUSEA AND/OR VOMITING; Start at 09:30 Acetaminophen (Tylenol Tab) 650 mg Q6H PRN PO PAIN LEVEL 1-3 OR FEVER; Start 08/06/17 at 09:30 Morphine Sulfate 2 mg 2 mg Q4H PRN IV SEVERE PAIN LEVEL 7-10; Start 08/06/17 at 09:30 Levetiracetam (Keppra 1,000mg/ 100ml (Pmx)) 100 ml @ 400 mls/hr Q12 IVPB Last administered on 08/08/17 09:20; Admin Dose 400 MLS/HR; Start 08/06/17 at 09: 30 Lorazepam (Ativan) 2 mg Q10M PRN IV seizure; Start 08/06/17 at 09:30 Lorazepam 1 mg 1 mg Q1H PRN IV ANXIETY Last administered on 08/08/17 03:11; Admin Dose 1 MG; Start 08/06/17 at 23:00 Multivitamins/ Thiamine HCl/ Sodium Chloride (Mvi Adult/ Vitamin B1/NS) 1,011 ml @ 125 mls/hr DAILY@09 IVPB Last administered on 08/08/17 10:15; Admin Dose 125 MLS/HR; Start 08/07/17 at 02:08 Assessment/Plan Chief Complaint/Hosp Course Patient is a 47-year-old male with history of seizure disorder and alcohol abuse was brought in by [employer] from alf for an episode of possible seizures. Weakness reported that his body was shaking and he became confused. There is no history of fall or head injury. His last alcohol use was about 4 days ago. He had history of seizures and the last seizure was about 4 years ago, as per patient. He is not on any medication for seizures. CT scan of the brain showed chronic white matter disease otherwise unremarkable. Examination showed him to be confused otherwise nonfocal. Breakthrough seizures Recommend c/w Keppra MRI Brain unrevealing for acute process monitor for seizures, DT's Librium as needed discharge planning Problems: DANII BUTLER MD Aug 08, 2017 11:32
[2017-08-08 14:20] VITALS: BP 119/73; RESP 20
--- NOTE | 2017-08-08 15:05 | SP ---
DATE OF PROCEDURE: 08/07/2017 HISTORY: This is a 47-year-old male who had a history of seizure, was admitted with possible breakt hrough seizures. He has history of alcohol abuse. CURRENT MEDICATIONS: 1. Librium 2. Keppra. 3. Ativan. 4. Morphine. PROCEDURE: Utilizing a 16-channel EEG machine, cap scalp electrodes were applied in accordance with International 10-20 system. [id number] and qkamu-ej-[id number] montages were displayed. Electrical i mpedances were measured and reported. DESCRIPTION: During the resting state, posterior dominant rhythm of about 8 to 9 Hz were seen bihem ispherically. Excessive muscle artifact was noted throughout the tracing. Hyperventilation was not performed. Photic stimulation had a good response. There was no focal lateralizing or epileptifor m discharge identified. INTERPRETATION: This is a normal EEG. A normal EEG does not exclude seizure disorder. Please uma elate clinically. Dictated By: NEHEMIAS WARD/GLADIS Conf#: [id number] DID#: [id number]
--- NOTE | 2017-08-08 15:05 | SP ---
DATE OF PROCEDURE: 08/07/2017 HISTORY: This is a 47-year-old male who had a history of seizure, was admitted with possible breakt hrough seizures. He has history of alcohol abuse. CURRENT MEDICATIONS: 1. Librium 2. Keppra. 3. Ativan. 4. Morphine. PROCEDURE: Utilizing a 16-channel EEG machine, cap scalp electrodes were applied in accordance with International 10-20 system. [id number] and vwpia-[id number] montages were displayed. Electrical i mpedances were measured and reported. DESCRIPTION: During the resting state, posterior dominant rhythm of about 8 to 9 Hz were seen bihem ispherically. Excessive muscle artifact was noted throughout the tracing. Hyperventilation was not performed. Photic stimulation had a good response. There was no focal lateralizing or epileptifor m discharge identified. INTERPRETATION: This is a normal EEG. A normal EEG does not exclude seizure disorder. Please uma elate clinically. Dictated By: NEHEMIAS WARD/GLADIS Conf#: [id number] DID#: [id number]
--- NOTE | 2017-08-08 15:05 | SP ---
DATE OF PROCEDURE: 08/07/2017 HISTORY: This is a 47-year-old male who had a history of seizure, was admitted with possible breakt hrough seizures. He has history of alcohol abuse. CURRENT MEDICATIONS: 1. Librium 2. Keppra. 3. Ativan. 4. Morphine. PROCEDURE: Utilizing a 16-channel EEG machine, cap scalp electrodes were applied in accordance with International 10-20 system. [id number] and jbwxm-yg-rol montages were displayed. Electrical i mpedances were measured and reported. DESCRIPTION: During the resting state, posterior dominant rhythm of about 8 to 9 Hz were seen bihem ispherically. Excessive muscle artifact was noted throughout the tracing. Hyperventilation was not performed. Photic stimulation had a good response. There was no focal lateralizing or epileptifor m discharge identified. INTERPRETATION: This is a normal EEG. A normal EEG does not exclude seizure disorder. Please uma elate clinically. Dictated By: NEHEMIAS WARD/GLADIS Conf#: [id number] DID#: [id number]
[2017-08-08 19:56] VITALS: BP 122/76; RESP 20
[2017-08-08 20:10] VITALS: BP 122/76; PULSE 127; RESP 20
[2017-08-08] MEDS: ACETAMINOPHEN 325 MG TAB PO PRN (21:05)
[2017-08-09] MEDS: LORAZEPAM 2 MG INJ IV PRN ×2 (00:21→22:19)
[2017-08-09 02:12] VITALS: BP 99/54; RESP 20
[2017-08-09 02:19] VITALS: PULSE 109
[2017-08-09 08:01] VITALS: BP 117/57; RESP 16
[2017-08-09] MEDS: LEVETIRACETAM 1000 MG (PMX) 100 ML IVPB SCH ×2 (08:30→20:33)
[2017-08-09] MEDS: MULTIVITAMINS 10 ML, THIAMINE 100 MG in SOD CHLORIDE 0.9% 1,000 ML IVPB SCH (08:30)
[2017-08-09] MEDS ORDERED: LORA-444 PO (11:47)
[2017-08-09] MEDS ORDERED: THIA100T10 PO (11:47)
[2017-08-09] MEDS ORDERED: CHLO25CA9 PO (11:47)
[2017-08-09] MEDS ORDERED: LEVE-5 PO (11:47)
[2017-08-09] MEDS ORDERED: FOLI-49 PO (11:47)
--- NOTE | 2017-08-09 11:58 | DS ---
Date/Time of Note Date/Time of Note DATE: 08/09/17 TIME: 11:48 Discharge Summary Admission/Discharge Info Admit Date/Time Aug 06, 2017 at 06:58 Discharge Date/Time Discharge Diagnosis 1. Seizure disorder, likely alcohol related, on keppra 2. Alcoholism with alcohol withdrawal, on librium and ativan 3. Acute encephalopathy, improving 4. Nondisplaced fracture of the left distal ulnar metaphysis, chronic, no surgery needed Patient Condition: Stable Hx of Present Illness Hospital Course Patient is a 47-year-old male with history of seizure disorder and alcohol abuse was brought [facility] by [employer] from [facility] for an episode of possible seizures. Weakness reported that his body was shaking and he became confused. There is no history of fall or head injury. His last alcohol use was about 4 days ago. He had history of seizures and the last seizure was about 4 years ago, as per patient. He is not on any medication for seizures. CT scan of the brain showed chronic white matter disease otherwise unremarkable. For seizure disorder, it is consider alcohol related but neurologist prefers to put him on keppra. No further seizure activity after admission. CT and MRI brain , EEG are all unremarkable. I will continue him on keppra and have him follow up with neurologist. Patient had confusion that was considered alcohol withdrawal and postictal. It is resolved. Patient sound has dementia, probably from alcohol abuse. Patient has tremors, that I put him on librium 25 mg po bid today, along with ativan prn. Benzodiazepines can be taper down as tolerated. He is on thiamine and folic acid. X-ray shows nondisplaced fracture of the distal ulnar metaphysis, that is chronic, no surgery needed per ortho. Home Meds Active Scripts Folic Acid* (Folic Acid*) 1 Mg Tablet, 1 MG PO DAILY for 3 Days, TAB Prov:MADELIN EPSTEIN MD 08/09/17 Thiamine* (Thiamine*) 100 Mg Tablet, 100 MG PO DAILY for 3 Days, TAB Prov:MADELIN EPSTEIN MD 08/09/17 Lorazepam* (Ativan*) 2 Mg Tablet, 2 MG PO Q6 Y for agitation, #10 TAB Prov:MADELIN EPSTEIN MD 08/09/17 Chlordiazepoxide* (Chlordiazepoxide*) 25 Mg Capsule, 25 MG PO BID for 3 Days, CAP Prov:MADELIN EPSTEIN MD 08/09/17 Levetiracetam* (Keppra*) 500 Mg Tablet, 500 MG PO BID for 30 Days, TAB Prov:MADELIN EPSTEIN MD 08/09/17 Discontinued Reported Medications [none] Unknown Strength No Conflict Check 08/04/16 Discontinued Scripts Hydrocodone/Acetaminophen ([place] 5-325 Tablet) 1 Each Tablet, 1 TAB PO Q6H Y for PAIN, #20 TAB Prov:TRUNG HARPER NP 08/04/16 Ibuprofen* (Motrin*) 600 Mg Tab, 600 MG PO Q6H Y for PAIN AND OR ELEVATED TEMP, #30 TAB Prov:TRUNG HARPER NP 08/04/16 Follow-up Plan transfer to [facility] Primary Care Provider [facility] Pending Labs Laboratory Tests Test 08/09/17 05:38 White Blood Count 9.410^3/ul (4.8-10.8) Red Blood Count 3.8110^6/ul (4.70-6.10) Hemoglobin 12.4g/dl (14.0-18.0) Hematocrit 36.2% (42.0-52.0) Mean Corpuscular Volume 95.0fl (82.0-101.0) Mean Corpuscular Hemoglobin 32.5pg (29.0-33.0) Mean Corpuscular Hemoglobin Concent 34.3g/dl (32.0-37.0) Red Cell Distribution Width 17.2% (11.5-14.5) Platelet Count 49386^3/UL (140-415) Mean Platelet Volume 11.3fl (7.4-10.4) Neutrophils % 82.0% (39.0-77.0) Lymphocytes % 4.9% (15.0-51.0) Monocytes % 11.7% (0.0-11.0) Eosinophils % 0.5% (0.0-7.0) Basophils % 0.6% (0.0-2.0) Nucleated Red Blood Cells % 0.0/100WBC (0.0-0.0) Neutrophils # 7.710^3/ul (1.6-7.5) Lymphocytes # 0.510^3/ul (0.8-2.9) Monocytes # 1.110^3/ul (0.3-0.9) Eosinophils # 0.110^3/ul (0.0-0.5) Basophils # 0.110^3/ul (0.0-0.1) Nucleated Red Blood Cells # 0.010^3/ul (0.0-0.0) Sodium Level 139mmol/L (135-144) Potassium Level 3.2mmol/L (3.5-5.1) Chloride Level 98mmol/L (97-110) Carbon Dioxide Level 31mmol/L (21-31) Anion Gap 13 (8-16) Blood Urea Nitrogen 12mg/dl (7-20) Creatinine 0.90mg/dl (0.61-1.24) Glucose Level 112mg/dl (70-220) Calcium Level 9.3mg/dl (8.4-10.2) Phosphorus Level 5.0mg/dl (2.5-4.9) Magnesium Level 1.3mg/dl (1.7-2.5) MADELIN EPSTEIN MD Aug 09, 2017 11:58
--- NOTE | 2017-08-09 11:58 | DS ---
Date/Time of Note Date/Time of Note DATE: 08/09/17 TIME: 11:48 Discharge Summary Admission/Discharge Info Admit Date/Time Aug 06, 2017 at 06:58 Discharge Date/Time Discharge Diagnosis 1. Seizure disorder, likely alcohol related, on keppra 2. Alcoholism with alcohol withdrawal, on librium and ativan 3. Acute encephalopathy, improving 4. 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 Weakness reported that his body was shaking and he became confused. There is no history of fall or head injury. His last alcohol use was about 4 days ago. He had history of seizures and the last seizure was about 4 years ago, as per patient. He is not on any medication for seizures. CT scan of the brain showed chronic white matter disease otherwise unremarkable. For seizure disorder, it is consider alcohol related but neurologist prefers to put him on keppra. No further seizure activity after admission. CT and MRI brain , EEG are all unremarkable. I will continue him on keppra and have him follow up with neurologist. Patient had confusion that was considered alcohol withdrawal and postictal. It is resolved. Patient sound has dementia, probably from alcohol abuse. Patient has tremors, that I put him on librium 25 mg po bid today, along with ativan prn. Benzodiazepines can be taper down as tolerated. He is on thiamine and folic acid. X-ray shows nondisplaced fracture of the distal ulnar metaphysis, that is chronic, no surgery needed per ortho. Home Meds Active Scripts Folic Acid* (Folic Acid*) 1 Mg Tablet, 1 MG PO DAILY for 3 Days, TAB Prov:MADELIN EPSTEIN MD 08/09/17 Thiamine* (Thiamine*) 100 Mg Tablet, 100 MG PO DAILY for 3 Days, TAB Prov:MADELIN EPSTEIN MD 08/09/17 Lorazepam* (Ativan*) 2 Mg Tablet, 2 MG PO Q6 Y for agitation, #10 TAB Prov:MADELIN EPSTEIN MD 08/09/17 Chlordiazepoxide* (Chlordiazepoxide*) 25 Mg Capsule, 25 MG PO BID for 3 Days, CAP Prov:MADELIN EPSTEIN MD 08/09/17 Levetiracetam* (Keppra*) 500 Mg Tablet, 500 MG PO BID for 30 Days, TAB Prov:MADELIN EPSTEIN MD 08/09/17 Discontinued Reported Medications [none] Unknown Strength No Conflict Check 08/04/16 Discontinued Scripts Hydrocodone/Acetaminophen ([place] 5-325 Tablet) 1 Each Tablet, 1 TAB PO Q6H Y for PAIN, #20 TAB Prov:TRUNG HARPER NP 08/04/16 Ibuprofen* (Motrin*) 600 Mg Tab, 600 MG PO Q6H Y for PAIN AND OR ELEVATED TEMP, #30 TAB Prov:TRUNG HARPER NP 08/04/16 Follow-up Plan transfer to [facility] Primary Care Provider [facility] Pending Labs Laboratory Tests Test 08/09/17 05:38 White Blood Count 9.410^3/ul (4.8-10.8) Red Blood Count 3.8110^6/ul (4.70-6.10) Hemoglobin 12.4g/dl (14.0-18.0) Hematocrit 36.2% (42.0-52.0) Mean Corpuscular Volume 95.0fl (82.0-101.0) Mean Corpuscular Hemoglobin 32.5pg (29.0-33.0) Mean Corpuscular Hemoglobin Concent 34.3g/dl (32.0-37.0) Red Cell Distribution Width 17.2% (11.5-14.5) Platelet Count 09476^3/UL (140-415) Mean Platelet Volume 11.3fl (7.4-10.4) Neutrophils % 82.0% (39.0-77.0) Lymphocytes % 4.9% (15.0-51.0) Monocytes % 11.7% (0.0-11.0) Eosinophils % 0.5% (0.0-7.0) Basophils % 0.6% (0.0-2.0) Nucleated Red Blood Cells % 0.0/100WBC (0.0-0.0) Neutrophils # 7.710^3/ul (1.6-7.5) Lymphocytes # 0.510^3/ul (0.8-2.9) Monocytes # 1.110^3/ul (0.3-0.9) Eosinophils # 0.110^3/ul (0.0-0.5) Basophils # 0.110^3/ul (0.0-0.1) Nucleated Red Blood Cells # 0.010^3/ul (0.0-0.0) Sodium Level 139mmol/L (135-144) Potassium Level 3.2mmol/L (3.5-5.1) Chloride Level 98mmol/L (97-110) Carbon Dioxide Level 31mmol/L (21-31) Anion Gap 13 (8-16) Blood Urea Nitrogen 12mg/dl (7-20) Creatinine 0.90mg/dl (0.61-1.24) Glucose Level 112mg/dl (70-220) Calcium Level 9.3mg/dl (8.4-10.2) Phosphorus Level 5.0mg/dl (2.5-4.9) Magnesium Level 1.3mg/dl (1.7-2.5) MADELIN EPSTEIN MD Aug 09, 2017 11:58
--- NOTE | 2017-08-09 11:58 | DS ---
Date/Time of Note Date/Time of Note DATE: 08/09/17 TIME: 11:48 Discharge Summary Admission/Discharge Info Admit Date/Time Aug 06, 2017 at 06:58 Discharge Date/Time Discharge Diagnosis 1. Seizure disorder, likely alcohol related, on keppra 2. Alcoholism with alcohol withdrawal, on librium and ativan 3. Acute encephalopathy, improving 4. Nondisplaced fracture of the left distal ulnar metaphysis, chronic, no surgery needed Patient Condition: Stable Hx of Present Illness Hospital Course Patient is a 47-year-old male with history of seizure disorder and alcohol abuse was brought in by [employer] from detention for an episode of possible seizures. Weakness reported that his body was shaking and he became confused. There is no history of fall or head injury. His last alcohol use was about 4 days ago. He had history of seizures and the last seizure was about 4 years ago, as per patient. He is not on any medication for seizures. CT scan of the brain showed chronic white matter disease otherwise unremarkable. For seizure disorder, it is consider alcohol related but neurologist prefers to put him on keppra. No further seizure activity after admission. CT and MRI brain , EEG are all unremarkable. I will continue him on keppra and have him follow up with neurologist. Patient had confusion that was considered alcohol withdrawal and postictal. It is resolved. Patient sound has dementia, probably from alcohol abuse. Patient has tremors, that I put him on librium 25 mg po bid today, along with ativan prn. Benzodiazepines can be taper down as tolerated. He is on thiamine and folic acid. X-ray shows nondisplaced fracture of the distal ulnar metaphysis, that is chronic, no surgery needed per ortho. Home Meds Active Scripts Folic Acid* (Folic Acid*) 1 Mg Tablet, 1 MG PO DAILY for 3 Days, TAB Prov:MADELIN EPSTEIN MD 08/09/17 Thiamine* (Thiamine*) 100 Mg Tablet, 100 MG PO DAILY for 3 Days, TAB Prov:MADELIN EPSTEIN MD 08/09/17 Lorazepam* (Ativan*) 2 Mg Tablet, 2 MG PO Q6 Y for agitation, #10 TAB Prov:MADELIN EPSTEIN MD 08/09/17 Chlordiazepoxide* (Chlordiazepoxide*) 25 Mg Capsule, 25 MG PO BID for 3 Days, CAP Prov:MADELIN EPSTEIN MD 08/09/17 Levetiracetam* (Keppra*) 500 Mg Tablet, 500 MG PO BID for 30 Days, TAB Prov:MADELIN EPSTEIN MD 08/09/17 Discontinued Reported Medications [none] Unknown Strength No Conflict Check 08/04/16 Discontinued Scripts Hydrocodone/Acetaminophen ([place] 5-325 Tablet) 1 Each Tablet, 1 TAB PO Q6H Y for PAIN, #20 TAB Prov:TRUNG HARPER NP 08/04/16 Ibuprofen* (Motrin*) 600 Mg Tab, 600 MG PO Q6H Y for PAIN AND OR ELEVATED TEMP, #30 TAB Prov:TRUNG HARPER NP 08/04/16 Follow-up Plan transfer to [facility] Primary Care Provider [facility] Pending Labs Laboratory Tests Test 08/09/17 05:38 White Blood Count 9.410^3/ul (4.8-10.8) Red Blood Count 3.8110^6/ul (4.70-6.10) Hemoglobin 12.4g/dl (14.0-18.0) Hematocrit 36.2% (42.0-52.0) Mean Corpuscular Volume 95.0fl (82.0-101.0) Mean Corpuscular Hemoglobin 32.5pg (29.0-33.0) Mean Corpuscular Hemoglobin Concent 34.3g/dl (32.0-37.0) Red Cell Distribution Width 17.2% (11.5-14.5) Platelet Count 44254^3/UL (140-415) Mean Platelet Volume 11.3fl (7.4-10.4) Neutrophils % 82.0% (39.0-77.0) Lymphocytes % 4.9% (15.0-51.0) Monocytes % 11.7% (0.0-11.0) Eosinophils % 0.5% (0.0-7.0) Basophils % 0.6% (0.0-2.0) Nucleated Red Blood Cells % 0.0/100WBC (0.0-0.0) Neutrophils # 7.710^3/ul (1.6-7.5) Lymphocytes # 0.510^3/ul (0.8-2.9) Monocytes # 1.110^3/ul (0.3-0.9) Eosinophils # 0.110^3/ul (0.0-0.5) Basophils # 0.110^3/ul (0.0-0.1) Nucleated Red Blood Cells # 0.010^3/ul (0.0-0.0) Sodium Level 139mmol/L (135-144) Potassium Level 3.2mmol/L (3.5-5.1) Chloride Level 98mmol/L (97-110) Carbon Dioxide Level 31mmol/L (21-31) Anion Gap 13 (8-16) Blood Urea Nitrogen 12mg/dl (7-20) Creatinine 0.90mg/dl (0.61-1.24) Glucose Level 112mg/dl (70-220) Calcium Level 9.3mg/dl (8.4-10.2) Phosphorus Level 5.0mg/dl (2.5-4.9) Magnesium Level 1.3mg/dl (1.7-2.5) MADELIN EPSTEIN MD Aug 09, 2017 11:58
[2017-08-09] MEDS: ACETAMINOPHEN 325 MG TAB PO PRN (12:32)
[2017-08-09] MEDS: CHLORDIAZEPOXIDE 25 MG CAP PO SCH ×2 (12:32→20:33)
[2017-08-09] MEDS ORDERED: POTASSIUM CHLORIDE (SR) 20 MEQ TAB PO STA (12:37)
[2017-08-09] MEDS ORDERED: MAGNESIUM SULFATE 2 GM/50 ML 50 ML IVPB ONE (13:00)
[2017-08-09 15:15] VITALS: BP 105/74; RESP 18
[2017-08-09 20:18] VITALS: BP 101/66; RESP 20
[2017-08-10 00:54] VITALS: BP 141/85; RESP 20
[2017-08-10] MEDS: ACETAMINOPHEN 325 MG TAB PO PRN (00:58)
[2017-08-10 07:38] VITALS: BP 109/79; RESP 20
--- NOTE | 2017-08-10 08:26 | RADRPT ---
PROCEDURE: XR Chest. CLINICAL INDICATION: Fever. TECHNIQUE: Single frontal view. COMPARISON: 08/06/2017. FINDINGS: There is mild right basilar atelectasis and elevation of the right hemidiaphragm. The lungs are othe rwise clear. The heart size is normal. There is no pleural effusion. There is no pneumothorax. IMPRESSION: 1. Mild right basilar atelectasis. 2. Mild elevation of the right hemidiaphragm. 3. Otherwise unremarkable chest radiograph. RPTAT: QQ .Scooter Kelley MD, MD Date Time Electronically viewed and signed by .Scooter Kelley MD, MD on 08/10/2017 08:26 .R/
[2017-08-10] MEDS: CHLORDIAZEPOXIDE 25 MG CAP PO SCH ×3 (08:38→20:17)
[2017-08-10] MEDS: LEVETIRACETAM 1000 MG (PMX) 100 ML IVPB SCH ×2 (08:38→20:17)
[2017-08-10] MEDS: MULTIVITAMINS 10 ML, THIAMINE 100 MG in SOD CHLORIDE 0.9% 1,000 ML IVPB SCH (09:27)
[2017-08-10] MEDS: LORAZEPAM 2 MG INJ IV PRN ×3 (15:30→22:02)
[2017-08-10 15:46] VITALS: BP 109/74; RESP 22
--- NOTE | 2017-08-10 17:31 | PN ---
Date/Time of Note Date/Time of Note DATE: 08/10/17 TIME: 17:29 Assessment/Plan VTE Prophylaxis VTE Prophylaxis Intervention: SCD's Lines/Catheters IV [facility]ter Type (from [facility]): Peripheral IV Urinary Cath still in place: Yes Reason Cath still needed: urinary retention Assessment/Plan Assessment/Plan 1. Seizure disorder. Continue seizure precautions. Continue Keppra. Neurology following Brain CT and brain MRI negative for any acute findings. 2. Alcohol abuse. Watch for any alcohol withdrawal delirium.. Continue multivitamins. 3. Acute encephalopathy. Etiology unclear. Most probably toxic metabolic in origin. Brain imaging has been negative for any acute findings. 4. Nondisplaced fracture of the left distal ulnar metaphysis. Status post evaluation by orthopedic surgery. As per the orthopedic surgeon, this is an old fracture that is healed in mild malunion and no acute treatment is indicated at this time. 5. Normocytic, normochromic anemia. Etiology unclear. Will monitor H&H closely. Iron panel showing no evidence of any significant iron deficiency other than a slightly low iron saturation. 6. Fluids, electrolytes, and nutrition. Regular diet. 7. DVT prophylaxis. Bilateral SCDs. 8. Plan. Continue anticonvulsants. Subjective 24 Hr Interval Summary Free Text/Dictation remains agitated, on restraints, has zavala cathete rin , Police at bedside Exam/Review of Systems Vital Signs Vitals Vital Signs Date Time Temp Pulse Resp B/P Pulse Ox O2 Delivery O2 Flow Rate FiO2 08/10/17 15:46 98.9 99 22 109/74 91 08/08/17 20:10 Room Air Intake and Output 08/09/17 08/09/17 08/10/17 15:00 23:00 07:00 Intake Total 2745 ml 1400 ml Output Total 1450 ml 1500 ml Balance 1295 ml -100 ml Exam Constitutional: alert, other (intermittently confused ) Head: normocephalic Neck: non-tender, supple Respiratory: clear to auscultation, diminished breath sounds Cardiovascular: nl pulses, regular rate and rhythm Gastrointestinal: non-tender, soft Musculoskeletal: nl extremities to inspection, nl gait and stance Neurological: lethargic Results Result Diagram: 08/09/17 0538 08/09/1738 Medications Medications Current Medications Ondansetron HCl (Zofran Inj) 4 mg Q6H PRN IV NAUSEA AND/OR VOMITING; Start at 09:30 Acetaminophen (Tylenol Tab) 650 mg Q6H PRN PO PAIN LEVEL 1-3 OR FEVER Last administered on 08/10/17 00:58; Admin Dose 650 MG; Start 08/06/17 at 09:30 Morphine Sulfate 2 mg 2 mg Q4H PRN IV SEVERE PAIN LEVEL 7-10; Start 08/06/17 at 09:30 Levetiracetam (Keppra 1,000mg/ 100ml (Pmx)) 100 ml @ 400 mls/hr Q12 IVPB Last administered on 08/10/17 08:38; Admin Dose 400 MLS/HR; Start 08/06/17 at 09:30 Lorazepam (Ativan) 2 mg Q10M PRN IV seizure; Start 08/06/17 at 09:30 Lorazepam 1 mg 1 mg Q1H PRN IV ANXIETY Last administered on 08/10/17 15:30; Admin Dose 1 MG; Start 08/06/17 at 23:00 Multivitamins/ Thiamine HCl/ Sodium Chloride (Mvi Adult/ Vitamin B1/NS) 1,011 ml @ 125 mls/hr DAILY@09 IVPB Last administered on 08/10/17 09:27; Admin Dose 125 MLS/HR; Start 08/07/17 at 02:08 Chlordiazepoxide (Librium) 25 mg TID PO Last administered on 08/10/17 12:06; Admin Dose 25 MG; Start 08/09/17 at 13:00 CIARA LOCK MD Aug 10, 2017 17:31
[2017-08-10 19:42] VITALS: BP 113/74; RESP 20
[2017-08-10] MEDS ORDERED: LORAZEPAM 2 MG INJ IV ONE (23:30)
[2017-08-10] MEDS ORDERED: HALOPERIDOL 5 MG INJ IM ONE (23:30)
[2017-08-11 01:11] VITALS: BP 119/71; RESP 20
[2017-08-11] MEDS: MULTIVITAMINS 10 ML, THIAMINE 100 MG in SOD CHLORIDE 0.9% 1,000 ML IVPB SCH (08:37)
[2017-08-11] MEDS: LEVETIRACETAM 1000 MG (PMX) 100 ML IVPB SCH ×2 (08:37→20:23)
[2017-08-11] MEDS: CHLORDIAZEPOXIDE 25 MG CAP PO SCH ×3 (10:10→20:23)
[2017-08-11 10:41] VITALS: BP 101/63; RESP 16
--- NOTE | 2017-08-11 10:51 | PN ---
Date/Time of Note Date/Time of Note DATE: 08/11/17 TIME: 10:49 Assessment/Plan VTE Prophylaxis VTE Prophylaxis Intervention: SCD's Lines/Catheters [facility] Peripheral IV Urinary Cath still in place: Yes Reason Cath still needed: other (indicate) (it is condom catheter, pt is severey agitated on handcuffed ) Assessment/Plan Assessment/Plan 1. Seizure disorder. Continue seizure precautions. Continue Keppra IV Neurology following Brain CT and brain MRI negative for any acute findings. 2. Alcohol abuse. Watch for any alcohol withdrawal delirium.. Continue multivitamins. 3. Acute encephalopathy. Etiology unclear. Most probably toxic metabolic in origin. Brain imaging has been negative for any acute findings. 4. Nondisplaced fracture of the left distal ulnar metaphysis. Status post evaluation by orthopedic surgery. As per the orthopedic surgeon, this is an old fracture that is healed in mild malunion and no acute treatment is indicated at this time. 5. Normocytic, normochromic anemia. 2/2 chornic disease 6. Fluids, electrolytes, and nutrition. Regular diet. 7. DVT prophylaxis. Bilateral SCDs. 8. Plan. Continue anticonvulsants. Subjective 24 Hr Interval Summary Free Text/Dictation pt remained stable, afebrile, on Handcuffed, police at bedside Exam/Review of Systems Vital Signs Vitals Vital Signs Date Time Temp Pulse Resp B/P Pulse Ox O2 Delivery O2 Flow Rate FiO2 08/11/17 10:41 98.3 86 16 101/63 97 08/08/17 20:10 Room Air Intake and Output 08/10/17 08/10/17 08/11/17 15:00 23:00 07:00 Intake Total 2671 ml 700 ml Output Total 3300 ml 1200 ml Balance -629 ml -500 ml Exam Constitutional: alert, other (intermittently confused ) Head: normocephalic Neck: non-tender, supple Respiratory: clear to auscultation, diminished breath sounds Cardiovascular: nl pulses, regular rate and rhythm Gastrointestinal: non-tender, soft Musculoskeletal: nl extremities to inspection, nl gait and stance Neurological: confused Results Result Diagram: 08/11/1718 08/11/17 0518 Results 24 hrs Laboratory Tests Test 08/11/17 05:18 White Blood Count 5.1 # Red Blood Count 3.92 L Hemoglobin 12.7 L Hematocrit 37.5 L Mean Corpuscular Volume 95.7 Mean Corpuscular Hemoglobin 32.4 Mean Corpuscular Hemoglobin Concent 33.9 Red Cell Distribution Width 17.2 H Platelet Count 204 # Mean Platelet Volume 10.5 H Neutrophils % Segmented Neutrophils % (Manual) 55 Band Neutrophils % (Manual) 15 H Lymphocytes % Lymphocytes % (Manual) 8 L Reactive Lymphocytes % (Manual) 1 H Monocytes % Monocytes % (Manual) 15 H Eosinophils % Eosinophils % (Manual) 5 Basophils % Basophils % (Manual) 1 Nucleated Red Blood Cells % 0.0 Neutrophils # Neutrophils # (Manual) 2.8 Band Neutrophils # 0.7 H Absolute Lymphocytes (Manual) 0.4 L Lymphocytes # Reactive Lymphocytes # 0.0 Monocytes # Absolute Monocytes (Manual) 0.7 Eosinophils # Basophils # Basophils # (Manual) 0.0 Nucleated Red Blood Cells # Platelet Estimate NORMAL Polychromasia 1+ Poikilocytosis 2+ Anisocytosis 1+ Macrocytosis 1+ Target Cells 1+ Prothrombin Time 11.5 L Prothrombin Time Ratio 0.9 INR International Normalized Ratio 0.84 Activated Partial Thromboplast Time 30.7 Sodium Level 140 Potassium Level 3.5 Chloride Level 100 Carbon Dioxide Level 28 Anion Gap 16 Blood Urea Nitrogen 6 L Creatinine 0.71 Glucose Level 94 Calcium Level 9.2 Phosphorus Level 4.9 Magnesium Level 1.5 L Total Bilirubin 0.1 L Direct Bilirubin 0.00 Indirect Bilirubin 0.1 Aspartate Amino Transf (AST/SGOT) 70 H Alanine Aminotransferase (ALT/SGPT) 37 Alkaline Phosphatase 66 Total Protein 7.3 Albumin 3.8 Globulin 3.50 H Albumin/Globulin Ratio 1.08 Medications Medications Current Medications Ondansetron HCl (Zofran Inj) 4 mg Q6H PRN IV NAUSEA AND/OR VOMITING; Start at 09:30 Acetaminophen (Tylenol Tab) 650 mg Q6H PRN PO PAIN LEVEL 1-3 OR FEVER Last administered on 08/10/17 00:58; Admin Dose 650 MG; Start 08/06/17 at 09:30 Morphine Sulfate 2 mg 2 mg Q4H PRN IV SEVERE PAIN LEVEL 7-10; Start 08/06/17 at 09:30 Levetiracetam (Keppra 1,000mg/ 100ml (Pmx)) 100 ml @ 400 mls/hr Q12 IVPB Last administered on 08/11/17 08:37; Admin Dose 400 MLS/HR; Start 08/06/17 at 09:30 Lorazepam (Ativan) 2 mg Q10M PRN IV seizure; Start 08/06/17 at 09:30 Lorazepam 1 mg 1 mg Q1H PRN IV ANXIETY Last administered on 08/10/17 22:02; Admin Dose 1 MG; Start 08/06/17 at 23:00 Multivitamins/ Thiamine HCl/ Sodium Chloride (Mvi Adult/ Vitamin B1/NS) 1,011 ml @ 125 mls/hr DAILY@09 IVPB Last administered on 08/11/17 08:37; Admin Dose 125 MLS/HR; Start 08/07/17 at 02:08 Chlordiazepoxide (Librium) 25 mg TID PO Last administered on 08/11/17 10:10; Admin Dose 25 MG; Start 08/09/17 at 13:00 CIARA LOCK MD Aug 11, 2017 10:51
--- NOTE | 2017-08-11 10:52 | PDOCDIS ---
Discharge Instructions DIAGNOSIS Discharge Diagnosis 1. Seizure disorder, likely alcohol related, on keppra 2. Alcoholism with alcohol withdrawal, on librium and ativan 3. Acute encephalopathy, improving 4. Nondisplaced fracture of the left distal ulnar metaphysis, chronic, no surgery needed CONDITION Patient Condition: Good HOME CARE INSTRUCTIONS: Special Diet: reg ACTIVITY: Activity Restrictions: Slowly Increase Activity Rest between Activity Avoid heavy lifting Avoid Heavy Housework FOLLOW UP/APPOINTMENTS Follow-up Plan transfer to [facility] Follow up with physician at [facility] CIARA LOCK MD Aug 11, 2017 10:52
--- NOTE | 2017-08-11 10:52 | PDOCDIS ---
Discharge Instructions DIAGNOSIS Discharge Diagnosis 1. Seizure disorder, likely alcohol related, on keppra 2. Alcoholism with alcohol withdrawal, on librium and ativan 3. Acute encephalopathy, improving 4. Nondisplaced fracture of the left distal ulnar metaphysis, chronic, no surgery needed CONDITION Patient Condition: Good HOME CARE INSTRUCTIONS: Special Diet: reg ACTIVITY: Activity Restrictions: Slowly Increase Activity Rest between Activity Avoid heavy lifting Avoid Heavy Housework FOLLOW UP/APPOINTMENTS Follow-up Plan transfer to [facility] Follow up with physician at [facility] CIARA LOCK MD Aug 11, 2017 10:52
--- NOTE | 2017-08-11 10:52 | PDOCDIS ---
Discharge Instructions DIAGNOSIS Discharge Diagnosis 1. Seizure disorder, likely alcohol related, on keppra 2. Alcoholism with alcohol withdrawal, on librium and ativan 3. Acute encephalopathy, improving 4. Nondisplaced fracture of the left distal ulnar metaphysis, chronic, no surgery needed CONDITION Patient Condition: Good HOME CARE INSTRUCTIONS: Special Diet: reg ACTIVITY: Activity Restrictions: Slowly Increase Activity Rest between Activity Avoid heavy lifting Avoid Heavy Housework FOLLOW UP/APPOINTMENTS Follow-up Plan transfer to [facility] Follow up with physician at [facility] CIARA LOCK MD Aug 11, 2017 10:52
[2017-08-11] MEDS ORDERED: MAGNESIUM SULFATE 2 GM/50 ML 50 ML IVPB ONE (12:00)
[2017-08-11] MEDS ORDERED: LORAZEPAM 2 MG INJ IV PRN (14:00)
[2017-08-11 19:25] VITALS: BP 96/60; RESP 18
[2017-08-12 02:47] VITALS: BP 112/68; RESP 18
[2017-08-12 08:24] VITALS: BP 124/76; PULSE 71; RESP 20
[2017-08-12] MEDS: CHLORDIAZEPOXIDE 25 MG CAP PO SCH ×2 (08:56→13:17)
[2017-08-12] MEDS: LEVETIRACETAM 1000 MG (PMX) 100 ML IVPB SCH (08:56)
[2017-08-12] MEDS: MULTIVITAMINS 10 ML, THIAMINE 100 MG in SOD CHLORIDE 0.9% 1,000 ML IVPB SCH (08:56)
--- NOTE | 2017-08-12 12:26 | PN ---
Date/Time of Note Date/Time of Note DATE: 08/12/17 TIME: 12:23 Assessment/Plan VTE Prophylaxis VTE Prophylaxis Intervention: SCD's Lines/Catheters IV Catheter Type (from [facility]): Peripheral IV Urinary Cath still in place: Yes Reason Cath still needed: other (indicate) Assessment/Plan Assessment/Plan 1. Seizure disorder. Continue seizure precautions. Continue Keppra IV Neurology following Brain CT and brain MRI negative for any acute findings. 2. Alcohol abuse. Watch for any alcohol withdrawal delirium.. Continue multivitamins. 3. Acute encephalopathy. Etiology unclear. Most probably toxic metabolic in origin. Brain imaging has been negative for any acute findings. 4. Nondisplaced fracture of the left distal ulnar metaphysis. Status post evaluation by orthopedic surgery. As per the orthopedic surgeon, this is an old fracture that is healed in mild malunion and no acute treatment is indicated at this time. 5. Normocytic, normochromic anemia. 2/2 chornic disease 6. Fluids, electrolytes, and nutrition. Regular diet. 7. DVT prophylaxis. Bilateral SCDs. 8. Plan. Continue anticonvulsants. Subjective 24 Hr Interval Summary Free Text/Dictation pt remained stable, afebrile, on Hand cuffed Exam/Review of Systems Vital Signs Vitals Vital Signs Date Time Temp Pulse Resp B/P Pulse Ox O2 Delivery O2 Flow Rate FiO2 08/12/17 08:24 98.0 71 20 124/76 94 08/08/17 20:10 Room Air Intake and Output 08/11/17 08/11/17 08/12/17 15:00 23:00 07:00 Intake Total 750 ml 2345 ml 2000 ml Output Total 350 ml 2600 ml Balance 750 ml 1995 ml -600 ml Exam Constitutional: alert, awake, intermittently confused Head: normocephalic Neck: non-tender, supple Respiratory: clear to auscultation, diminished breath sounds Cardiovascular: nl pulses, regular rate and rhythm Gastrointestinal: non-tender, soft Musculoskeletal: nl extremities to inspection, nl gait and stance Results Result Diagram: 08/11/1751708/11/17517 Medications Medications Current Medications Ondansetron HCl (Zofran Inj) 4 mg Q6H PRN IV NAUSEA AND/OR VOMITING; Start at 09:30 Acetaminophen (Tylenol Tab) 650 mg Q6H PRN PO PAIN LEVEL 1-3 OR FEVER Last administered on 08/10/17 00:58; Admin Dose 650 MG; Start 08/06/17 at 09:30 Morphine Sulfate 2 mg 2 mg Q4H PRN IV SEVERE PAIN LEVEL 7-10; Start 08/06/17 at 09:30 Levetiracetam 100 ml @ 400 mls/hr Q12 IVPB Last administered on 08/12/17 08: 56; Admin Dose 400 MLS/HR; Start 08/06/17 at 09:30 Multivitamins/ Thiamine HCl/ Sodium Chloride (Mvi Adult/ Vitamin B1/NS) 1,011 ml @ 125 mls/hr DAILY@09 IVPB Last administered on 08/12/17 08:56; Admin Dose 125 MLS/HR; Start 08/07/17 at 02:08 Chlordiazepoxide (Librium) 25 mg TID PO Last administered on 08/12/17 08:56; Admin Dose 25 MG; Start 08/09/17 at 13:00 Lorazepam (Ativan) 1 mg Q4H PRN IV Seizure, anxiety ; Start 08/11/17 at 14:00 CIARA LOCK MD Aug 12, 2017 12:26
[2017-08-12 15:30] VITALS: BP 116/75; RESP 20
[2017-08-12 19:30] VITALS: BP 103/70; RESP 20
--- NOTE | 2017-08-13 10:05 | DS ---
Date/Time of Note Date/Time of Note DATE: 08/13/17 TIME: 10:05 Discharge Summary Admission/Discharge Info Admit Date/Time Aug 06, 2017 at 06:58 Discharge Date/Time Aug 12, 2017 at 20:05 Discharge Diagnosis 1. Seizure disorder, likely alcohol related, on keppra 2. Alcoholism with alcohol withdrawal, on librium and ativan 3. Acute encephalopathy, improving 4. Nondisplaced fracture of the left distal ulnar metaphysis, chronic, no surgery needed Hx of Present Illness Hospital Course 1. Seizure disorder. Continue seizure precautions. Continue Keppra. Pending EEG. Brain CT and brain MRI negative for any acute findings. 2. Alcohol abuse. Watch for any alcohol withdrawal delirium.. Continue multivitamins. 3. Acute encephalopathy. Etiology unclear. Most probably toxic metabolic in origin. Brain imaging has been negative for any acute findings. 4. Nondisplaced fracture of the left distal ulnar metaphysis. Status post evaluation by orthopedic surgery. As per the orthopedic surgeon, this is an old fracture that is healed in mild malunion and no acute treatment is indicated at this time. 5. Normocytic, normochromic anemia. Etiology unclear. Will monitor H&H closely. Iron panel showing no evidence of any significant iron deficiency other than a slightly low iron saturation. 6. Fluids, electrolytes, and nutrition. Regular diet. 7. DVT prophylaxis. Bilateral SCDs. 8. Plan. Continue anticonvulsants. Await further neurology recommendations. Case discussed with Dr. Gasca. Home Meds Active Scripts Folic Acid* (Folic Acid*) 1 Mg Tablet, 1 MG PO DAILY for 3 Days, TAB Prov:MADELIN EPSTEIN MD 08/09/17 Thiamine* (Thiamine*) 100 Mg Tablet, 100 MG PO DAILY for 3 Days, TAB Prov:MADELIN EPSTEIN MD 08/09/17 Lorazepam* (Ativan*) 2 Mg Tablet, 2 MG PO Q6 Y for agitation, #10 TAB Prov:MADELIN EPSTEIN MD 08/09/17 Chlordiazepoxide* (Chlordiazepoxide*) 25 Mg Capsule, 25 MG PO BID for 3 Days, CAP Prov:MADELIN EPSTEIN MD 08/09/17 Levetiracetam* (Keppra*) 500 Mg Tablet, 500 MG PO BID for 30 Days, TAB Prov:MADELIN EPSTEIN MD 08/09/17 Discontinued Reported Medications [none] Unknown Strength No Conflict Check 08/04/16 Discontinued Scripts Hydrocodone/Acetaminophen ([place] 5-325 Tablet) 1 Each Tablet, 1 TAB PO Q6H Y for PAIN, #20 TAB Prov:TRUNG HARPER NP 08/04/16 Ibuprofen* (Motrin*) 600 Mg Tab, 600 MG PO Q6H Y for PAIN AND OR ELEVATED TEMP, #30 TAB Prov:TRUNG HARPER NP 08/04/16 Follow-up Plan transfer to [facility] Follow up with physician at [facility] Primary Care Provider [facility] CIARA LOCK MD Aug 13, 2017 10:05
--- NOTE | 2017-08-13 10:05 | DS ---
Date/Time of Note Date/Time of Note DATE: 08/13/17 TIME: 10:05 Discharge Summary Admission/Discharge Info Admit Date/Time Aug 06, 2017 at 06:58 Discharge Date/Time Aug 12, 2017 at 20:05 Discharge Diagnosis 1. Seizure disorder, likely alcohol related, on keppra 2. Alcoholism with alcohol withdrawal, on librium and ativan 3. Acute encephalopathy, improving 4. Nondisplaced fracture of the left distal ulnar metaphysis, chronic, no surgery needed Hx of Present Illness Hospital Course 1. Seizure disorder. Continue seizure precautions. Continue Keppra. Pending EEG. Brain CT and brain MRI negative for any acute findings. 2. Alcohol abuse. Watch for any alcohol withdrawal delirium.. Continue multivitamins. 3. Acute encephalopathy. Etiology unclear. Most probably toxic metabolic in origin. Brain imaging has been negative for any acute findings. 4. Nondisplaced fracture of the left distal ulnar metaphysis. Status post evaluation by orthopedic surgery. As per the orthopedic surgeon, this is an old fracture that is healed in mild malunion and no acute treatment is indicated at this time. 5. Normocytic, normochromic anemia. Etiology unclear. Will monitor H&H closely. Iron panel showing no evidence of any significant iron deficiency other than a slightly low iron saturation. 6. Fluids, electrolytes, and nutrition. Regular diet. 7. DVT prophylaxis. Bilateral SCDs. 8. Plan. Continue anticonvulsants. Await further neurology recommendations. Case discussed with Dr. Gasca. Home Meds Active Scripts Folic Acid* (Folic Acid*) 1 Mg Tablet, 1 MG PO DAILY for 3 Days, TAB Prov:MADELIN EPSTEIN MD 08/09/17 Thiamine* (Thiamine*) 100 Mg Tablet, 100 MG PO DAILY for 3 Days, TAB Prov:MADELIN EPSTEIN MD 08/09/17 Lorazepam* (Ativan*) 2 Mg Tablet, 2 MG PO Q6 Y for agitation, #10 TAB Prov:MADELIN EPSTEIN MD 08/09/17 Chlordiazepoxide* (Chlordiazepoxide*) 25 Mg Capsule, 25 MG PO BID for 3 Days, CAP Prov:MADELIN EPSTEIN MD 08/09/17 Levetiracetam* (Keppra*) 500 Mg Tablet, 500 MG PO BID for 30 Days, TAB Prov:MADELIN EPSTEIN MD 08/09/17 Discontinued Reported Medications [none] Unknown Strength No Conflict Check 08/04/16 Discontinued Scripts Hydrocodone/Acetaminophen ([place] 5-325 Tablet) 1 Each Tablet, 1 TAB PO Q6H Y for PAIN, #20 TAB Prov:TRUNG HARPER NP 08/04/16 Ibuprofen* (Motrin*) 600 Mg Tab, 600 MG PO Q6H Y for PAIN AND OR ELEVATED TEMP, #30 TAB Prov:TRUNG HARPER NP 08/04/16 Follow-up Plan transfer to [facility] Follow up with physician at [facility] Primary Care Provider [facility] CIARA LOCK MD Aug 13, 2017 10:05
--- NOTE | 2017-08-13 10:05 | DS ---
Date/Time of Note Date/Time of Note DATE: 08/13/17 TIME: 10:05 Discharge Summary Admission/Discharge Info Admit Date/Time Aug 06, 2017 at 06:58 Discharge Date/Time Aug 12, 2017 at 20:05 Discharge Diagnosis 1. Seizure disorder, likely alcohol related, on keppra 2. Alcoholism with alcohol withdrawal, on librium and ativan 3. Acute encephalopathy, improving 4. Nondisplaced fracture of the left distal ulnar metaphysis, chronic, no surgery needed Hx of Present Illness Hospital Course 1. Seizure disorder. Continue seizure precautions. Continue Keppra. Pending EEG. Brain CT and brain MRI negative for any acute findings. 2. Alcohol abuse. Watch for any alcohol withdrawal delirium.. Continue multivitamins. 3. Acute encephalopathy. Etiology unclear. Most probably toxic metabolic in origin. Brain imaging has been negative for any acute findings. 4. Nondisplaced fracture of the left distal ulnar metaphysis. Status post evaluation by orthopedic surgery. As per the orthopedic surgeon, this is an old fracture that is healed in mild malunion and no acute treatment is indicated at this time. 5. Normocytic, normochromic anemia. Etiology unclear. Will monitor H&H closely. Iron panel showing no evidence of any significant iron deficiency other than a slightly low iron saturation. 6. Fluids, electrolytes, and nutrition. Regular diet. 7. DVT prophylaxis. Bilateral SCDs. 8. Plan. Continue anticonvulsants. Await further neurology recommendations. Case discussed with Dr. Gasca. Home Meds Active Scripts Folic Acid* (Folic Acid*) 1 Mg Tablet, 1 MG PO DAILY for 3 Days, TAB Prov:MADELIN EPSTEIN MD 08/09/17 Thiamine* (Thiamine*) 100 Mg Tablet, 100 MG PO DAILY for 3 Days, TAB Prov:MADELIN EPSTEIN MD 08/09/17 Lorazepam* (Ativan*) 2 Mg Tablet, 2 MG PO Q6 Y for agitation, #10 TAB Prov:MADELIN EPSTEIN MD 08/09/17 Chlordiazepoxide* (Chlordiazepoxide*) 25 Mg Capsule, 25 MG PO BID for 3 Days, CAP Prov:MADELIN EPSTEIN MD 08/09/17 Levetiracetam* (Keppra*) 500 Mg Tablet, 500 MG PO BID for 30 Days, TAB Prov:MADELIN EPSTEIN MD 08/09/17 Discontinued Reported Medications [none] Unknown Strength No Conflict Check 08/04/16 Discontinued Scripts Hydrocodone/Acetaminophen ([place] 5-325 Tablet) 1 Each Tablet, 1 TAB PO Q6H Y for PAIN, #20 TAB Prov:TRUNG HARPER NP 08/04/16 Ibuprofen* (Motrin*) 600 Mg Tab, 600 MG PO Q6H Y for PAIN AND OR ELEVATED TEMP, #30 TAB Prov:TRUNG HARPER NP 08/04/16 Follow-up Plan transfer to [facility] Follow up with physician at [facility] Primary Care Provider [facility] CIARA LOCK MD Aug 13, 2017 10:05
== END 2017-08-12 20:05 | DRG 100 ==
LOC: E/R 00:58 → MS2 06:58
PROVIDERS: ADMIT Internal Medicine; ATTEND Internal Medicine
DX: G40.509 Epileptic seizures related to external causes, not intractable, without status epilepticus (principal); G93.49 Other encephalopathy; F10.239 Alcohol dependence with withdrawal, unspecified; S52.602A Unspecified fracture of lower end of left ulna, initial encounter for closed fracture; D64.9 Anemia, unspecified; X58.XXXA Exposure to other specified factors, initial encounter
CPT/HCPCS: 36415; 70450; 70551; 71010; 80048; 80053; 80306; 80307; 81001; 82607; 82728; 82746; 82962; 83540; 83605; 83735; 84100; 84425; 85025; 85610; 85730; 87040; 87081; 87086; 90686; 93005; 95819; 96365; 96366; 96375; J1200; J1630; J1953; J2060; J2405; J3411; J3475; J7030